=== PATIENT | female | born 1985 | race Caucasian/White ===

== ENCOUNTER → 2018-04-03 09:05 | Outpatient (CLI) | payer OTHER, SELFPAY ==
[2018-04-03 09:59] LABS: Absolute Lymphocyte Count 2.19 X10^3/ul (0.83-4.51); Absolute Neutrophil Count 5.8 X10^3/uL (2.0-7.7); Basophil# 0.05 X10^3/uL; Basophil% 0.6 % (0-1); Eosinophil# 0.25 X10^3/uL; Eosinophils% 2.9 % (0-5); Hemoglobin 14.8 g/dl (12.0-15.0); Lymphocyte # 2.19 X10^3/ul (4.0); Mean Corp Hgb Conc 34.4 g/gl (32-36); Mean Corpuscular Hgb 31.6 pg (27.0-32.0); Mean Corpuscular Volume 91.7 fL (81-99); Mean Platelet Vol. 9.6 fl (6.2-12.0); Monocyte# 0.51 X10^3/uL; Monocyte% 5.8 % (0-10); Neutrophil # 5.76 X10^3/uL (2.7-7.7); Neutrophil % 65.6 % (47-70); Platelet Count 392 K/mm3 (150-450); RBC Distribution Width CV 12.4 % (11.6-14.6); RBC Distribution Width SD 40.5 fl (35.1-43.9); Red Blood Count 4.69 M/mm3 (4.2-5.4); White Blood Count 8.8 K/mm3 (4.4-11.0)
[2018-04-03 10:00] LABS: POSITIVE COUNT NO; POSITIVE DIFFERENTIAL NO; POSITIVE MORPHOLOGY NO
[2018-04-03 10:30] LABS: ALB/GLOB Ratio 0.9 RATIO (0.9-2.4); AST(SGOT) 16 U/L (15-37); Alanine Aminotransfer ALT/SGPT 35 U/L (13-56); Albumin, Serum 3.6 g/dL (3.2-5.0); Alkaline Phosphatase 77 U/L (45-117); Anion Gap 10 (5-15); BUN 15 mg/dL (7-18); BUN/Creat Ratio 18.5 RATIO (10-20); Calcium,Total 8.5 mg/dL (8.5-10.1); Chloride 104 mmol/L (98-107); Cholesterol 158 mg/dL (200); Creatinine, Serum 0.81 mg/dL (0.55-1.02); EST Glomerular Filtration Rate 86 mL/min (>60); Est Glom Filt Rate - Afr Amer 104 mL/min (>60); Globulin 3.8 g/dL (2.2-4.2); Glucose 92 mg/dL (74-106); High Density Lipoprotein 38 mg/dL; Potassium 3.8 mmol/L (3.5-5.1); Protein, Total 7.4 g/dL (6.4-8.2); Sodium Level 140 mmol/L (136-145); Triglycerides 79 mg/dL; Very Low Density Lipoprotein 16 mg/dL (5-40)
== END ==
PROVIDERS: Family Provider Internal Medicine; PCP Internal Medicine; Referring Provider Internal Medicine; Visit Provider Internal Medicine
DX: I10 Essential (primary) hypertension (principal); J45.909 Unspecified asthma, uncomplicated
CPT/HCPCS: 36415; 80053; 80061; 85025

== ENCOUNTER → 2018-04-09 12:45 | Outpatient (CLI) | payer OTHER, SELFPAY ==
--- NOTE | 2018-04-09 12:49 | EKG12_ITS ---
Test Reason : HYPERTENSION Blood Pressure : / mmHG Vent. Rate : 074 BPM Atrial Rate : 074 BPM P-R Int : 168 ms QRS Dur : 082 ms QT Int : 386 ms P-R-T Axes : 048 020 030 degrees QTc Int : 428 ms Normal sinus rhythm Cannot rule out Anterior infarct , age undetermined Abnormal ECG Confirmed by PARKER LOVE, DIA ([id number]), managing editor MARIELOS BRUNSON ([id number] on 04/12/2018 12:49:51 PM Referred By: Aline Chávez Confirmed By:DIA CANALES MD
== END ==
PROVIDERS: Family Provider Internal Medicine; PCP Internal Medicine; Referring Provider Internal Medicine; Visit Provider Internal Medicine
DX: I10 Essential (primary) hypertension (principal)
CPT/HCPCS: 93005

== ENCOUNTER → 2018-10-20 17:12 | Outpatient (CLI) | payer OTHER, SELFPAY ==
[2018-10-20 16:52] VITALS: BMI 37.0
[2018-10-20 18:10] LABS: ALB/GLOB Ratio 1.1 RATIO (0.9-2.4); AST(SGOT) 18 U/L (15-37); Alanine Aminotransfer ALT/SGPT 27 U/L (13-56); Albumin, Serum 4.1 g/dL (3.2-5.0); Alkaline Phosphatase 76 U/L (45-117); Anion Gap 6 (5-15); BUN 13 mg/dL (7-18); BUN/Creat Ratio 17.7 RATIO (10-20); Calcium,Total 8.8 mg/dL (8.5-10.1); Chloride 107 mmol/L (98-107); Creatinine, Serum 0.74 mg/dL (0.55-1.02); EST Glomerular Filtration Rate 96 mL/min (>60); Est Glom Filt Rate - Afr Amer 116 mL/min (>60); Globulin 3.7 g/dL (2.2-4.2); Glucose 88 mg/dL (74-106); Potassium 3.7 mmol/L (3.5-5.1); Protein, Total 7.8 g/dL (6.4-8.2); Sodium Level 136 mmol/L (136-145)
== END ==
PROVIDERS: Family Provider Internal Medicine; PCP Internal Medicine; Referring Provider Internal Medicine; Visit Provider Internal Medicine
DX: I10 Essential (primary) hypertension (principal)
CPT/HCPCS: 36415; 80053

== ENCOUNTER → 2019-03-22 15:58 | Outpatient (CLI) | payer OTHER, SELFPAY ==
[2019-01-31 09:34] VITALS: BMI 37.0
--- NOTE | 2019-03-22 16:00 | RAD_ITS ---
STUDY: X-RAY CHEST REASON FOR EXAM: Female, 34 years old. Enlarged lymph nodes and history of asthma TECHNIQUE: Frontal and lateral views of the chest. COMPARISON: None. FINDINGS: The lungs are clear and expanded. There is no demonstrated pleural abnormality. Normal size heart. Normal mediastinum and song. Normal visualized pulmonary arteries. Normal visualized aortic arch and descending thoracic aorta. Normal visualized thoracic spine. Normal visualized ribs, clavicles, and shoulders. There is no demonstrated abnormality of the visualized soft tissue structures of the upper abdomen. RAD/Chest PA and Lateral IMPRESSION: Normal x-ray examination of the chest. Electronically Signed: Abel Crystal MD at 20:58 EDT , Service support ,
== END ==
PROVIDERS: Family Provider Internal Medicine; PCP Internal Medicine; Referring Provider Dermatology Pediatric Dermatology; Visit Provider Dermatology Pediatric Dermatology
DX: L50.1 Idiopathic urticaria (principal); R59.0 Localized enlarged lymph nodes; L29.8 Other pruritus
CPT/HCPCS: 71046

== ENCOUNTER → 2019-05-18 10:15 | Outpatient (CLI) | payer OTHER, SELFPAY ==
[2019-05-04 16:56] VITALS: BMI 37.0
--- NOTE | 2019-05-18 10:19 | EKG12_ITS ---
Test Reason : TACHYCARDIA Blood Pressure : / mmHG Vent. Rate : 089 BPM Atrial Rate : 089 BPM P-R Int : 164 ms QRS Dur : 078 ms QT Int : 354 ms P-R-T Axes : 046 012 026 degrees QTc Int : 430 ms Normal sinus rhythm Cannot rule out Anterior infarct , age undetermined Abnormal ECG Confirmed by CHIVO DEL TORO ([id number]), makeup editor DARRELL TRAN ([id number]) on 05/20/2019 11:30:23 AM Referred By: Aline Chávez Confirmed By:CHIVO DEL TORO
== END ==
PROVIDERS: Family Provider Internal Medicine; PCP Internal Medicine; Referring Provider Internal Medicine; Visit Provider Internal Medicine
DX: I10 Essential (primary) hypertension (principal); R00.0 Tachycardia, unspecified
CPT/HCPCS: 93005

== ENCOUNTER → 2019-11-08 | Outpatient (CLI) | payer OTHER, SELFPAY ==
[2019-11-08 15:24] VITALS: BMI 37.3
[2019-11-08 16:58] LABS: Bacteria 0 SEEN /hpf (None Seen); Mucous, Urine 0 SEEN /hpf (<or=2+)
[2019-11-08 17:01] LABS: Color, Urine Yellow (Yellow); Glucose, Dipstick Normal (Normal); Ketone-Dipstick Negative (Negative); Leukocyte Esterase-Dipstick 100 /ul (Negative); Nitrite-Dipstick Negative (Negative); Occult Blood-Urine 50 /ul (Negative); Protein-Dipstick 15 mg/dl (Negative); Urine Bilirubin Dipstick Negative (Negative); Urine Clarity Sl. Cloudy (Clear); Urine Urobilinogen Normal (Normal)
[2019-11-08 17:07] LABS: Red Blood Cells-Urine 0-5 SEEN /hpf (0-5); Squamous Epithelial Cells - UA 0-5 SEEN /hpf (5-10); White Blood Cells 5-10 SEEN /hpf (0-5)
== END | disposition home or self-care (01) ==
LOC: LABSPEC 16:38
PROVIDERS: PCP Internal Medicine; Referring Provider Internal Medicine; Visit Provider Internal Medicine
DX: R10.9 Unspecified abdominal pain (principal)
CPT/HCPCS: 81001

== ENCOUNTER 2019-11-09 14:29 | Emergency (ER) | payer OTHER, SELFPAY ==
[2019-11-08 15:24] VITALS: BMI 37.3
[2019-11-09 14:30] VITALS: BP 147/102; PULSE 120; PULSE 127; RESP 18; TEMP 36.4; O2SAT 96; O2SAT 97; BMI 37.6
--- NOTE | 2019-11-09 14:57 | CT_ITS ---
STUDY: CT ABDOMEN AND PELVIS WITHOUT CONTRAST REASON FOR EXAM: Female, 34 years old. Left lower quadrant pain RADIATION DOSAGE (If Supplied By Facility): CTDIvol = ( 17.54 ) mGy, DLP = ( 867.49 ) mGycm TECHNIQUE: Transaxial images were obtained from the dome of the diaphragm to the symphysis pubis without oral contrast, and without intravenous contrast. Sagittal and coronal images were reconstructed. Individualized dose optimization techniques were used for this CT. COMPARISON: None. FINDINGS: The visualized lung bases are unremarkable. The visualized portions of the heart are within normal limits. Normal liver. Normal gallbladder and extrahepatic biliary system. Normal spleen. Normal pancreas. Normal bilateral adrenal glands. Normal right kidney. There is left-sided hydronephrosis and hydroureter with perinephric and periureteral inflammatory stranding. Findings are due to a 6.2 mm stone in the distal left ureter seen on coronal recon image 78 and axial image 148. Normal visualized stomach. Normal small intestine. Normal colon. The appendix is visualized and appears normal. Appendix best seen on axial image 130 Normal abdominal aorta. Normal inferior vena cava. Normal retroperitoneum. Normal urinary bladder. Uterus contains an IUD. No suspicious cystic mass or free fluid Normal abdominal wall. Normal osseous structures. CT/Abdomen/Pelvis without Cont IMPRESSION: There is a 6.2 mm stone in the distal left ureter causing hydronephrosis, hydroureter, perinephric and periureteral inflammatory stranding Normal appendix visualized No free intraperitoneal fluid, air, or suspicious adenopathy IUD noted within the uterus Electronically Signed: Artem Alarcon MD at 16:24 EDT , Service support ,
--- NOTE | 2019-11-09 14:58 | ED.DCSUM_ITS ---
- ER Visit Summary Date of Service: 11/09/19 Chief Complaint: Left flank pain History of Present Illness: The patient is a 34 F who presents with left flank pain for the past week. Patient states she has seen her doctor for this. Patient states her doctor referred to the emergency department for further e valuation. Patient describes her pain as sharp and cramping. Patient states the pain is intermittent and last for several hours. Patient states the pain is localized to the left flank. Patient states the pain improves somewhat with heat and with walking. Patient denies any fevers or chills. Patient denies any dysuria or hematuria. Patient admits to some nausea but denies any vomiting. Physical Examination: Vital signs are stable except for tachycardia of 127. Patient is afebrile. Patient is in no acute distress. Neck is supple. Trachea is midline. There is no JVD. Heart was regular rate and rhythm. Lungs are clear and equal bilaterally. Abdomen is soft. Bowel sounds are normal. There is mild left sided abdominal tenderness. There is left CVA tenderness. There is no rebound or guarding noted. Cranial nerves II through XII are intact. There are no focal motor or sensory deficits noted. Extremities are intact. There is no calf tenderness or edema. Test Results: CBC shows a mild leukocytosis of 16.7. Comprehensive metabolic profile showed a slightly elevated creatinine of 1.21 and a BUN of 21. Urinalysis does not show any evidence of urinary tract infection. Serum hCG was negative. CT scan of the abdomen and pelvis was obtained. There is a 6.2 mm stone in the left distal ureter with hydronephrosis and hydroureter. This was interpreted by the radiologist and reviewed by myself. Emergency Department Course and Treatment: Patient was given IV fluids, Toradol, and Zofran here. Patient was resting comfortably on reevaluation. Patient states her pain is resolved. Patient was given a prescription for Percocet. Patient was instructed to drink plenty of fluids. Patient was instructed to follow-up with her primary care physician in 5 to 7 days. Patient was also given referral to Dr. Dave for follow-up with urology. Patient understood and was agreeable with the plan. All questions were answered. Disposition: Discharge home Impression: 1. Left distal ureteral calculus This note was generated with [employer] software. It may contain incorrect words, spelling, and punctuation that were not noted in review of the chart prior to signing ED Disposition - Plan for ED Patient: Disposition: Home or Assisted Living Instructions: ED Renal Stone w Colic Prescriptions: Oxycodone HCl/Acetaminophen [Percocet 5/325] 1 tab PO Q6H PRN PRN 3 Days #12 tab PRN Reason: Pain Prescription Printed Referrals: Aline Chávez MD [Primary Care Provider] - 3-5 Days Rachel Dave MD [STAFF PHYSICIAN] - 1-2 Days if not improving
[2019-11-09 15:09] LABS: Mucous, Urine 0 SEEN /hpf (<or=2+)
[2019-11-09] MEDS: Ketorolac 30 MG/ML Syringe IV (15:10)
[2019-11-09] MEDS: Ondansetron 4 MG/2 ML Vial IV (15:10)
[2019-11-09] MEDS: 0.9% Normal Saline 1,000 ML 250 ML IV (15:11)
[2019-11-09 15:13] LABS: Absolute Lymphocyte Count 1.75 X10^3/uL (0.83-4.51); Absolute Neutrophil Count 13.6 X10^3/uL (2.0-7.7); Basophil# 0.05 X10^3/uL; Basophil% 0.3 % (0-1); Eosinophil# 0.13 X10^3/uL; Eosinophils% 0.8 % (0-5); Hematocrit 43.2 % (37-47); Hemoglobin 14.5 g/dL (12.0-15.0); Lymphocyte # 1.75 X10^3/ul (4.0); Lymphocyte % 10.5 % (19-41); Mean Corp Hgb Conc 33.6 g/dL (32-36); Mean Corpuscular Hgb 30.7 pg (27.0-32.0); Mean Corpuscular Volume 91.3 fL (81-99); Mean Platelet Vol. 9.2 fl (6.2-12.0); Monocyte# 1.08 X10^3/uL; Monocyte% 6.5 % (0-10); NRBC Flagged by Analyzer 0 % (0-5); Neutrophil # 13.59 X10^3/uL (2.7-7.7); Neutrophil % 81.5 % (47-70); Platelet Count 466 K/mm3 (150-450); RBC Distribution Width CV 12.1 % (11.6-14.6); RBC Distribution Width SD 41.1 fl (35.1-43.9); Red Blood Count 4.73 M/mm3 (4.2-5.4); White Blood Count 16.7 K/mm3 (4.4-11.0)
[2019-11-09 15:19] LABS: Color, Urine Yellow (Yellow); Glucose, Dipstick Normal (Normal); Ketone-Dipstick 50 mg/dl (Negative); Leukocyte Esterase-Dipstick 100 /ul (Negative); Nitrite-Dipstick Negative (Negative); Occult Blood-Urine 50 /ul (Negative); Protein-Dipstick 15 mg/dl (Negative); Specific Gravity, Urine 1.025 (1.002-1.030); Urine Bilirubin Dipstick Negative (Negative); Urine Clarity Clear (Clear); Urine Urobilinogen Normal (Normal)
[2019-11-09 15:24] LABS: Anion Gap 7 (5-15); BUN 21 mg/dL (7-18); BUN/Creat Ratio 17.4 RATIO (10-20); Calcium,Total 9.6 mg/dL (8.5-10.1); Chloride 108 mmol/L (98-107); Creatinine, Serum 1.21 mg/dL (0.55-1.02); EST Glomerular Filtration Rate 54 mL/min (>60); Est Glom Filt Rate - Afr Amer 65 mL/min (>60); Estimated Creatinine Clearance 58.39 ml/min; Glucose 100 mg/dL (74-106); Potassium 3.8 mmol/L (3.5-5.1); Sodium Level 141 mmol/L (136-145)
[2019-11-09 15:29] LABS: Bacteria 1+ /hpf (None Seen); Red Blood Cells-Urine 0-5 SEEN /hpf (0-5); Squamous Epithelial Cells - UA 5-10 SEEN /hpf (5-10); White Blood Cells 0-5 SEEN /hpf (0-5)
[2019-11-09 15:36] LABS: Internal QC Validated? YES +Cl - CLEAR BKGD; Pregnancy, Serum, hCG Quali. NEGATIVE Negative
[2019-11-09 17:57] VITALS: RESP 16
== END 2019-11-09 17:58 | disposition home or self-care (01) ==
PROVIDERS: Emergency Provider Emergency Medicine; PCP Internal Medicine
DX: N13.2 Hydronephrosis with renal and ureteral calculous obstruction (principal); I10 Essential (primary) hypertension; J45.909 Unspecified asthma, uncomplicated; Z79.899 Other long term (current) drug therapy
CPT/HCPCS: 74176; 80048; 81001; 84703; 85025; 96361; 96374; 96375; 99283; J7030; A4216; J2405

== ENCOUNTER → 2019-11-24 14:47 | Outpatient (CLI) | payer OTHER, SELFPAY ==
[2019-11-09 14:30] VITALS: BMI 37.6
[2019-11-24 17:10] LABS: Anion Gap 5 (5-15); BUN 23 mg/dL (7-18); BUN/Creat Ratio 21.5 RATIO (10-20); Calcium,Total 9.1 mg/dL (8.5-10.1); Chloride 106 mmol/L (98-107); Creatinine, Serum 1.07 mg/dL (0.55-1.02); EST Glomerular Filtration Rate 62 mL/min (>60); Est Glom Filt Rate - Afr Amer 75 mL/min (>60); Glucose 87 mg/dL (74-106); Potassium 3.5 mmol/L (3.5-5.1); Sodium Level 138 mmol/L (136-145)
== END ==
PROVIDERS: PCP Internal Medicine; Referring Provider Internal Medicine; Visit Provider Internal Medicine
DX: R10.9 Unspecified abdominal pain (principal); N28.9 Disorder of kidney and ureter, unspecified
CPT/HCPCS: 36415; 80048

== ENCOUNTER → 2019-12-20 14:55 | Outpatient (CLI) | payer OTHER, SELFPAY ==
--- NOTE | 2019-12-20 15:00 | US_ITS ---
STUDY: RENAL ULTRASOUND - COMPLETE REASON FOR EXAM: Female, 34 years old. HYDRONEPHROSIS WI CALCULUS TECHNIQUE: Ultrasound evaluation of the kidneys was performed with real-time and static freire-scale imaging. COMPARISON: None. FINDINGS: The study is technically limited secondary to patient obesity and excessive bowel gas. RIGHT KIDNEY: Normal location of the right kidney, which is normal in size. The right kidney measures 8.8 x 4.5 x 4.2 cm. There is a normal cortex of the right kidney. The renal cortex measures 1.5 cm. There is no right renal mass or cyst. There are no right renal calculi. There is no right hydronephrosis. DISTAL RIGHT URETER: There is non-visualization of the distal right ureter. There is no demonstrated right ureterovesical junction calculus. There is a visualized right ureteral jet. LEFT KIDNEY: Normal location of the left kidney, which is normal in size. The left kidney measures 9.4 x 4.9 x 5.4 cm. There is a normal cortex of the left kidney. The renal cortex measures 2.0 cm. There is no left renal mass or cyst. There are no left renal calculi. There is no left hydronephrosis. DISTAL LEFT URETER: There is non-visualization of the distal left ureter. There is no demonstrated left ureterovesical junction calculus. There is a visualized left ureteral jet. BLADDER: The distended urinary bladder has a volume of 54 ml. There is a normal wall thickness of the distended urinary bladder. Lateral wall thickness is 3 mm. There is no demonstrated mass within the urinary bladder. There are no demonstrated bladder calculi. US/Kidney and Bladder IMPRESSION: Normal ultrasound of the kidneys and urinary bladder. Electronically Signed: Giancarlo Abernathy MD at 16:07 EDT , Service support ,
== END ==
PROVIDERS: PCP Internal Medicine; Referring Provider Urology; Visit Provider Urology
DX: N13.2 Hydronephrosis with renal and ureteral calculous obstruction (principal)
CPT/HCPCS: 76770

== ENCOUNTER → 2020-05-04 12:20 | Outpatient (CLI) | payer OTHER, SELFPAY ==
[2020-05-02 17:28] VITALS: BMI 38.6
--- NOTE | 2020-05-04 12:21 | RAD_ITS ---
STUDY: X-RAY - LEFT HAND REASON FOR EXAM: Female, 35 years old. left wrist pain and localized swelling -- proximal 1st mc pain, no injury TECHNIQUE: 3 view(s) of the hand. COMPARISON: None. FINDINGS: Normal radiocarpal articulation. Normal distal radioulnar joint. Normal visualized carpal bones. Normal carpal articulations Normal carpometacarpal articulation of the thumb. Normal second through fifth carpometacarpal joints. Normal metacarpi. Normal metacarpophalangeal joint of the thumb. Normal interphalangeal joint of the thumb. Normal proximal and distal phalanges of the thumb. Normal metacarpophalangeal joints of the second through fifth fingers. Normal proximal and distal interphalangeal joints of the second through fifth fingers. Normal phalanges of the second through fifth fingers. The soft tissue structures are unremarkable. RAD/Hand Min 3 Views IMPRESSION: Normal x-ray examination of the hand. Electronically Signed: Joshua Jacobo MD (Brooks) at 14:11 EST , Service support ,
== END ==
PROVIDERS: PCP Internal Medicine; Referring Provider Internal Medicine; Visit Provider Internal Medicine
DX: M25.532 Pain in left wrist (principal)
CPT/HCPCS: 73130

== ENCOUNTER → 2020-09-18 10:07 | Outpatient (CLI) | payer OTHER, SELFPAY ==
--- NOTE | 2020-09-18 10:08 | MRI_ITS ---
STUDY: MRI LEFT WRIST WITHOUT CONTRAST REASON FOR EXAM: Left wrist pain at the palmar aspect of the fourth and fifth metacarpal bases. TECHNIQUE: Standardized fat and water weighted pulse sequences were obtained in all 3 orthogonal planes. COMPARISON: Radiographs 05/04/2020. FINDINGS: Normal visualized distal radius and ulna. Normal distal radioulnar articulation (DRUJ). Normal triangular fibrocartilaginous complex (TFCC). There is cystic change of the radial aspect of the lunate (inversion recovery coronal images 12-14) with preservation of normal T1 bone marrow signal in the remainder of the lunate. There is a small subchondral cyst in the distal pole of the scaphoid (inversion recovery coronal image 10). Otherwise, unremarkable carpal bones. Normal radiocarpal, intercarpal and midcarpal articulations. Normal pisotriquetral articulation. Normal visualized interosseous scapholunate ligament. Normal extensor tendons. Normal flexor tendons. Normal carpal tunnel with a normal median nerve. Normal Guyon''s canal and visualized ulnar nerve. Normal carpometacarpal articulation of the thumb. Normal second through fifth carpometacarpal articulations. Normal visualized metacarpal bones. There is no demonstrated soft tissue abnormality. There is specifically is no demonstrated soft tissue mass or cyst corresponding to the skin marker (T2 sagittal 21-23; inversion recovery axial images 10-12). MRI/Upper Ext Joint Only(Routine) IMPRESSION: Cystic change of the radial aspect of the lunate. Small subchondral cyst in the distal pole of the scaphoid. No demonstrated soft tissue mass or cyst corresponding to the skin marker. Electronically Signed: Taye Sanchez MD at 8:41 EDT Tel , Service support ,
== END ==
PROVIDERS: PCP Internal Medicine; Referring Provider Physician Assistant; Visit Provider Physician Assistant
DX: M25.832 Other specified joint disorders, left wrist (principal)
CPT/HCPCS: 73221

== ENCOUNTER → 2020-10-05 09:10 | Outpatient (CLI) | payer OTHER, SELFPAY ==
--- NOTE | 2020-10-05 09:20 | EKG12_ITS ---
Test Reason : TACHY Blood Pressure : / mmHG Vent. Rate : 093 BPM Atrial Rate : 093 BPM P-R Int : 168 ms QRS Dur : 082 ms QT Int : 350 ms P-R-T Axes : 041 011 022 degrees QTc Int : 435 ms Poor data quality, interpretation may be adversely affected Normal sinus rhythm Poor R- progression Confirmed by PARKER LOVE, DIA ([id number]), publishing editor DARRELL TRAN ([id number]) on 10/10/2020 10:32:50 AM Referred By: Aline Chávez Confirmed By:DIA CANALES MD
[2020-10-05 10:10] LABS: Absolute Lymphocyte Count 1.91 X10^3/uL (0.83-4.51); Absolute Neutrophil Count 6.4 X10^3/uL (2.0-7.7); Basophil# 0.09 X10^3/uL; Eosinophil# 0.27 X10^3/uL; Eosinophils% 2.9 % (0-5); Hematocrit 44.4 % (37-47); Hemoglobin 14.3 g/dL (12.0-15.0); Lymphocyte # 1.91 X10^3/ul (0.83-4.51); Lymphocyte % 20.6 % (19-41); Mean Corp Hgb Conc 32.2 g/dL (32-36); Mean Corpuscular Hgb 29.7 pg (27.0-32.0); Mean Corpuscular Volume 92.3 fL (81-99); Mean Platelet Vol. 9.1 fl (6.2-12.0); Monocyte# 0.53 X10^3/uL; Monocyte% 5.7 % (0-10); NRBC Flagged by Analyzer 0 % (0-5); Neutrophil # 6.43 X10^3/uL (2.7-7.7); Neutrophil % 69.5 % (47-70); Platelet Count 433 K/mm3 (150-450); RBC Distribution Width CV 12.7 % (11.6-14.6); RBC Distribution Width SD 43.3 fl (35.1-43.9); Red Blood Count 4.81 M/mm3 (4.2-5.4); White Blood Count 9.3 K/mm3 (4.4-11.0)
[2020-10-05 10:34] LABS: ALB/GLOB Ratio 0.9 RATIO (0.9-2.4); AST(SGOT) 19 U/L (15-37); Alanine Aminotransfer ALT/SGPT 41 U/L (13-56); Albumin, Serum 3.6 g/dL (3.2-5.0); Alkaline Phosphatase 88 U/L (45-117); Anion Gap 4 (5-15); BUN 10 mg/dL (7-18); BUN/Creat Ratio 12.2 RATIO (10-20); Calcium,Total 8.9 mg/dL (8.5-10.1); Chloride 104 mmol/L (98-107); Cholesterol 200 mg/dL (200); Creatinine, Serum 0.82 mg/dL (0.55-1.02); EST Glomerular Filtration Rate 84 mL/min (>60); Est Glom Filt Rate - Afr Amer 101 mL/min (>60); Globulin 3.8 g/dL (2.2-4.2); Glucose 95 mg/dL (74-106); High Density Lipoprotein 40 mg/dL; Potassium 3.9 mmol/L (3.5-5.1); Protein, Total 7.4 g/dL (6.4-8.2); Sodium Level 137 mmol/L (136-145); Triglycerides 93 mg/dL; Very Low Density Lipoprotein 19 mg/dL (5-40)
== END ==
PROVIDERS: PCP Internal Medicine; Referring Provider Internal Medicine; Visit Provider Internal Medicine
DX: R00.0 Tachycardia, unspecified (principal); I10 Essential (primary) hypertension; E66.9 Obesity, unspecified
CPT/HCPCS: 36415; 80053; 80061; 85025; 93005

== ENCOUNTER → 2020-12-19 15:38 | Outpatient (CLI) | payer OTHER, SELFPAY ==
[2020-12-17 07:56] VITALS: BMI 39.6
--- NOTE | 2020-12-19 15:41 | RAD_ITS ---
STUDY: X-RAY - ABDOMEN/PELVIS REASON FOR EXAM: Female, 35 years old. KUB-STONE TECHNIQUE: 1 view COMPARISON: Prior abdomen and pelvic CT exam of 11/09/2019 and renal ultrasound of 12/20/2019. FINDINGS: Normal visualized lung bases. There is an unremarkable bowel gas pattern. There is no demonstrated free abdominal air. The visualized liver, spleen and kidneys are grossly normal in size and morphology. Negative for renal, ureteral or bladder stones. IUD remains in the uterus. Normal visualized osseous structures. RAD/Abdomen Single View IMPRESSION: Normal x-ray examination of the abdomen and pelvis. Negative for renal, ureteral or bladder stones. The prior distal left ureteral stone is absent. Electronically Signed: Sandy Mijares MD at 16:08 EDT , Service support ,
== END ==
PROVIDERS: PCP Internal Medicine; Referring Provider Urology; Visit Provider Urology
DX: N20.1 Calculus of ureter (principal)
CPT/HCPCS: 74018

== ENCOUNTER → 2021-01-03 | Outpatient (CLI) | payer OTHER, SELFPAY ==
[2021-01-03 14:15] VITALS: BMI 39.1
[2021-01-08 14:10] LABS: HPV APTIMA, High Risk Negative (Negative)
== END | disposition home or self-care (01) ==
LOC: LABSPEC 15:14
PROVIDERS: PCP Internal Medicine; Referring Provider Nurse Practitioner Women's Health; Visit Provider Nurse Practitioner Women's Health
DX: Z12.4 Encounter for screening for malignant neoplasm of cervix (principal)
CPT/HCPCS: 87624; 88175; G0145

== ENCOUNTER → 2021-03-02 08:17 | Outpatient (CLI) | payer OTHER, SELFPAY ==
[2021-03-02 09:24] LABS: Cholesterol 196 mg/dL (200); High Density Lipoprotein 42 mg/dL; Triglycerides 79 mg/dL; Very Low Density Lipoprotein 16 mg/dL (5-40)
== END ==
PROVIDERS: PCP Internal Medicine; Referring Provider Internal Medicine; Visit Provider Internal Medicine
DX: I10 Essential (primary) hypertension (principal); E78.5 Hyperlipidemia, unspecified
CPT/HCPCS: 36415; 80061

== ENCOUNTER 2021-09-18 15:06 | Outpatient (CLI) | payer OTHER, SELFPAY ==
[2021-09-18 17:05] LABS: Absolute Lymphocyte Count 1.88 X10^3/uL (0.83-4.51); Absolute Neutrophil Count 6.8 X10^3/uL (2.0-7.7); Basophil# 0.08 X10^3/uL; Basophil% 0.8 % (0-1); Eosinophil# 0.33 X10^3/uL; Eosinophils% 3.4 % (0-5); Hematocrit 41.4 % (37-47); Lymphocyte # 1.88 X10^3/ul (0.83-4.51); Lymphocyte % 19.2 % (19-41); Mean Corp Hgb Conc 33.8 g/dL (32-36); Mean Corpuscular Volume 91.6 fL (81-99); Mean Platelet Vol. 9.2 fl (6.2-12.0); Monocyte% 7.2 % (0-10); NRBC Flagged by Analyzer 0 % (0-5); Neutrophil # 6.76 X10^3/uL (2.7-7.7); Neutrophil % 69.1 % (47-70); Platelet Count 462 K/mm3 (150-450); RBC Distribution Width CV 12.9 % (11.6-14.6); RBC Distribution Width SD 42.6 fl (35.1-43.9); Red Blood Count 4.52 M/mm3 (4.2-5.4); White Blood Count 9.8 K/mm3 (4.4-11.0)
[2021-09-18 17:19] LABS: Anion Gap 7 (5-15); BUN 16 mg/dL (7-18); Calcium,Total 8.8 mg/dL (8.5-10.1); Chloride 107 mmol/L (98-107); Creatinine, Serum 0.89 mg/dL (0.55-1.02); EST Glomerular Filtration Rate 76 mL/min (>60); Est Glom Filt Rate - Afr Amer 92 mL/min (>60); Glucose 96 mg/dL (74-106); Potassium 3.7 mmol/L (3.5-5.1); Sodium Level 141 mmol/L (136-145)
== END 2021-09-18 23:59 | disposition home or self-care (01) ==
LOC: BIMLAB 15:07
PROVIDERS: PCP Internal Medicine; Referring Provider Internal Medicine; Visit Provider Internal Medicine
DX: I10 Essential (primary) hypertension (principal)
CPT/HCPCS: 36415; 80048; 85025

== ENCOUNTER → 2022-01-30 | Outpatient (CLI) | payer OTHER, SELFPAY ==
[2022-01-30 16:31] LABS: Absolute Neutrophil Count 7.5 X10^3/uL (2.0-7.7); Basophil# 0.07 X10^3/uL; Basophil% 0.7 % (0-1); Eosinophil# 0.28 X10^3/uL; Eosinophils% 2.6 % (0-5); Hemoglobin 14.3 g/dL (12.0-15.0); Lymphocyte % 19.7 % (19-41); Mean Corp Hgb Conc 33.3 g/dL (32-36); Mean Corpuscular Hgb 30.5 pg (27.0-32.0); Mean Corpuscular Volume 91.7 fL (81-99); Mean Platelet Vol. 9.2 fl (6.2-12.0); Monocyte# 0.68 X10^3/uL; Monocyte% 6.4 % (0-10); NRBC Flagged by Analyzer 0 % (0-5); Neutrophil # 7.51 X10^3/uL (2.7-7.7); Neutrophil % 70.3 % (47-70); Platelet Count 465 K/mm3 (150-450); RBC Distribution Width SD 43.5 fl (35.1-43.9); Red Blood Count 4.69 M/mm3 (4.2-5.4); White Blood Count 10.7 K/mm3 (4.4-11.0)
[2022-01-30 16:42] LABS: ALB/GLOB Ratio 0.9 RATIO (0.9-2.4); AST(SGOT) 18 U/L (15-37); Alanine Aminotransfer ALT/SGPT 34 U/L (13-56); Albumin, Serum 3.6 g/dL (3.2-5.0); Alkaline Phosphatase 80 U/L (45-117); Anion Gap 4 (5-15); BUN 17 mg/dL (7-18); BUN/Creat Ratio 21.7 RATIO (10-20); Calcium,Total 9.3 mg/dL (8.5-10.1); Chloride 108 mmol/L (98-107); Cholesterol 186 mg/dL (200); Creatinine, Serum 0.78 mg/dL (0.55-1.02); EST Glomerular Filtration Rate 88 mL/min (>60); Est Glom Filt Rate - Afr Amer 106 mL/min (>60); Globulin 3.9 g/dL (2.2-4.2); Glucose 102 mg/dL (74-106); High Density Lipoprotein 36 mg/dL; Potassium 3.9 mmol/L (3.5-5.1); Protein, Total 7.5 g/dL (6.4-8.2); Sodium Level 138 mmol/L (136-145); Triglycerides 107 mg/dL; Very Low Density Lipoprotein 21 mg/dL (5-40)
== END | disposition home or self-care (01) ==
LOC: BIMLAB 15:17
PROVIDERS: PCP Internal Medicine; Referring Provider Internal Medicine; Visit Provider Internal Medicine
DX: I10 Essential (primary) hypertension (principal); E78.5 Hyperlipidemia, unspecified
CPT/HCPCS: 36415; 80053; 80061; 85025

== ENCOUNTER 2022-11-25 11:57 | Day surgery (SDC) | payer OTHER, SELFPAY ==
[2022-11-25] VITALS (7 sets, daily range): BP systolic 109–145; BP diastolic 76–90; PULSE 95–116; RESP 16–18; TEMP 36.6–37.3; O2SAT 94–99; BMI 38.9
[2022-11-25 12:35] LABS: Internal QC Validated? YES +Cl - CLEAR BKGD; Pregnancy, Urine Negative Negative
[2022-11-25] MEDS: Lactated Ringers 1,000 ML 15 ML IV (12:38)
--- NOTE | 2022-11-25 13:00 | PCM.HP.BLA ---
History and Physical Date of Admission: 11/25/22 SIA ZHENG, is a 37 F who presents to the office today for hoarse voice that began in 11/2021. She has been on PPI since 01/2022. Initially on omeprazole. Now on pantoprazole 40 mg BID and famotidine 20 mg BID. Medical treatment hasn't helped the hoarse voice. She has never had heartburn or acid reflux. Some intermittent difficulty with swallowing bread that started when she was 5 yrs ago. Has been evaluated by ENT who thinks the vocal cord issues are due to silent acid reflux. Dr Luciano did repeat laryngoscopy earlier this month, now has nodules on vocal cords. Didn't have nodules in 02/2022. She is a adult literacy teacher. No nausea, vomiting, abd pain. Exam Const General: cooperative and comfortable Nutritional Appearance: obese Orientation: alert, awake and oriented x3 Other: voice is hoarse Quality Reporting Tobacco Screening ([facility] 138) Smoking Status: Never smoker Assessment and Plan Assessment and Plan (1) Hoarseness: ?Status:?Chronic ?Plan: Will schedule her for EGD with Branch pH, hold famotidine and pantoprazole for 1 wk prior. Eval for reflux esophagitis, stone's, stricture, bile reflux. f/u in office 2 wks later to discuss results. I have examined the patient and the H&P has been reviewed. There are no clinical changes since date of exam.
--- NOTE | 2022-11-25 13:15 | EGD_PTH ---
PATIENT: SIA ZHENG LOC: EN U#:[id number] AGE/SX: 37/F ROOM: RE11/25/[address]: Dr. Mau Kohli DO : 1985 BED: DIS: 11/25/2022 SPEC #: [id number] RECD: 11/25/22 15:53 STATUS: JUAN REPreston #: [id number] EUGENIO: 11/25/22 13:[address]: Mau Kohli DEPT: SURGICAL PATHOLOGY RECD BY: Ami Crane ENTERED: 11/26/22 08:42 SP TYPE: EGD BIOPSY BRUNO DR: Dr. Aline Chávez MD Tissues: A - Esophagus, NOS B - Esophagus, NOS Procedures: Special Stain Group II Surgery Specimen Level IV Alcian Blue/PAS (control) HEADER OPERATION: EGD ? PH probe (MAC) PRE-OP DIAGNOSIS: Hoarseness TISSUE SUBMITTED: A ? Distal esophagus biopsy, B ? Random esophagus biopsy MICROSCOPIC DIAGNOSIS A. Distal esophagus, biopsy: Fragments of gastric mucosa with chronic gastritis. No evidence of goblet cell metaplasia. See comment. B. Esophagus, random biopsy: No pathologic change. AM:jessica 11/27/2022 COMMENT A. Alcian blue/PAS stain with matched control supports the above diagnosis. MICROSCOPIC DESCRIPTION Slides are reviewed. GROSS DESCRIPTION A - Received in fixative is one container labeled with the patient's name and designated distal esophagus biopsy. The specimen consists of two irregular fragments of light de jesus soft tissue that in aggregate measure 0.6 x 0.3 x 0.1 cm. The specimen is totally submitted in one cassette. B - Received in fixative is one container labeled with the patient's name and designated random esophagus biopsy. The specimen consists of two irregular fragments of light de jesus soft tissue that in aggregate measure 0.6 x 0.3 x 0.1 cm. The specimen is totally submitted in one cassette. / SJ:jessica 11/26/2022 TC:3 CPT: 81162 x2, 33320
--- NOTE | 2022-11-25 13:43 | OP.EGD_ITS ---
Patient Name: Leila Mueller Procedure Date: 11/25/2022 1:07 PM Date of : 1985 Age: 37 Procedure: Upper GI endoscopy Indications: Suspected esophageal reflux Providers: Mau Kohli DO Medicines: Monitored Anesthesia Care Patient Profile: This is a 37 year old female. Refer to note in patient chart for documentation of history and physical. Patient has symptoms. Complications: No immediate complications. Procedure: Pre-Anesthesia Assessment: - Prior to the procedure, a History and Physical was performed, and patient medications and allergies were reviewed. The patient is competent. The risks and benefits of the procedure and the sedation options and risks were discussed with the patient. All questions were answered and informed consent was obtained. Patient identification and proposed procedure were verified by the physician. Mental Status Examination: alert and oriented. Respiratory Examination: clear to auscultation. CV Examination: normal. Prophylactic Antibiotics: The patient does not require prophylactic antibiotics. Prior Anticoagulants: The patient has taken no previous anticoagulant or antiplatelet agents. ASA Grade Assessment: II - A patient with mild systemic disease. After reviewing the risks and benefits, the patient was deemed in satisfactory condition to undergo the procedure. The anesthesia plan was to use monitored anesthesia care (MAC). Immediately prior to administration of medications, the patient was re-assessed for adequacy to receive sedatives. The heart rate, respiratory rate, oxygen saturations, blood pressure, adequacy of pulmonary ventilation, and response to care were monitored throughout the procedure. The physical status of the patient was re-assessed after the procedure. After obtaining informed consent, the endoscope was passed under direct vision. Throughout the procedure, the patient's blood pressure, pulse, and oxygen saturations were monitored continuously. The Endoscope was introduced through the mouth, and advanced to the second part of duodenum. The upper GI endoscopy was accomplished without difficulty. The patient tolerated the procedure well. Scope In: 1:22:01 PM Scope Out: 1:29:53 PM Total Procedure Duration Time 0 hours 7 minutes 52 seconds Findings: The examined esophagus was normal. Biopsies were obtained from the proximal and distal esophagus with cold forceps for histology of suspected eosinophilic esophagitis. The Z-line was irregular and was found 36 cm from the incisors. Biopsies were taken with a cold forceps for histology. Verification of patient identification for the specimen was done. Estimated blood loss was minimal. The [employer] capsule with delivery system was introduced through the mouth and advanced into the esophagus, such that the BRITT pH capsule was positioned 36 cm from the incisors, which was 6 cm proximal to the GE junction. Suction was applied to the well of the BRITT pH capsule to suck in the adjacent mucosa of the esophagus using the external vacuum pump set at a minimum vacuum pressure of 550 mmHg for 30 seconds. The BRITT pH capsule was then deployed by depressing the plunger on top of the handle to advance the locking pin into the mucosa, thereby attaching the capsule to the esophagus. The plunger was then rotated a quarter turn clockwise to release the capsule from the delivery system. The delivery system was then withdrawn. Endoscopy was utilized for probe placement and diagnostic evaluation. A small hiatal hernia was present. No other significant abnormalities were identified in a careful examination of the stomach. The first portion of the duodenum was normal. Impression: - Normal esophagus. Biopsied. - Z-line irregular, 36 cm from the incisors. Biopsied. - Small hiatal hernia. - Normal first portion of the duodenum. - The BRITT pH capsule was positioned 36 cm from the incisors, which was 6 cm proximal to the GE junction. Recommendation: - Discharge patient to home. - Resume previous diet. - Continue present medications. - Await pathology results. Procedure Code(s): --- Professional --- 21327, Esophagogastroduodenoscopy, flexible, transoral; with biopsy, single or multiple CPT copyright 2017 [employer] [place] [employer]. All rights reserved. The codes documented in this report are preliminary and upon home appliance technician review may be revised to meet current compliance requirements. Mau Kohli DO 11/25/2022 1:43:18 PM This report has been signed electronically. Number of Addenda: 0 Note Initiated On: 11/25/2022 1:07 PM
--- NOTE | 2022-11-25 13:44 | OP.CCLET_ITS ---
11/25/2022 Aline Chávez MD [address] [place] [address] [place] [address] Re : Upper GI endoscopy procedure for Leila Mueller Dear Dr. Chávez This procedure was performed on Friday, November 25, 2022. My impressions and recommendations are as follows: Impressions : - Normal esophagus. Biopsied. - Z-line irregular, 36 cm from the incisors. Biopsied. - Small hiatal hernia. - Normal first portion of the duodenum. - The BRITT pH capsule was positioned 36 cm from the incisors, which was 6 cm proximal to the GE junction. Recommendations : - Discharge patient to home. - Resume previous diet. - Continue present medications. - Await pathology results. My findings are described in the full procedure note, which is enclosed. If I can be of further assistance, please feel free to contact me at . Sincerely, Mau Friend, 11/25/2022 1:43:18 PM This report has been signed electronically.
== END 2022-11-25 14:33 | disposition home or self-care (01) ==
LOC: EN 12:02 → AC 12:03
PROVIDERS: Anesthesiology; PCP Internal Medicine; Referring Provider Internal Medicine Gastroenterology; Visit Provider Internal Medicine Gastroenterology
PROC: (CPT 43239; principal; 2022-11-25 13:10)
DX: K29.50 Unspecified chronic gastritis without bleeding (principal); K44.9 Diaphragmatic hernia without obstruction or gangrene; R49.0 Dysphonia; K21.9 Gastro-esophageal reflux disease without esophagitis; E66.9 Obesity, unspecified; J45.909 Unspecified asthma, uncomplicated; I10 Essential (primary) hypertension; Z79.899 Other long term (current) drug therapy
CPT/HCPCS: 43239; 81025; 88305; 88313; J7120; J2405

== ENCOUNTER → 2022-12-26 | Outpatient (CLI) | payer OTHER, SELFPAY ==
[2022-12-26 12:06] LABS: Absolute Lymphocyte Count 1.83 X10^3/uL (0.83-4.51); Absolute Neutrophil Count 7.3 X10^3/uL (2.0-7.7); Basophil# 0.07 X10^3/uL; Basophil% 0.7 % (0-1); Eosinophil# 0.32 X10^3/uL; Eosinophils% 3.1 % (0-5); Hematocrit 43.8 % (37-47); Hemoglobin 14.3 g/dL (12.0-15.0); Lymphocyte # 1.83 X10^3/ul (0.83-4.51); Lymphocyte % 17.8 % (19-41); Mean Corp Hgb Conc 32.6 g/dL (32-36); Mean Corpuscular Hgb 30.1 pg (27.0-32.0); Mean Corpuscular Volume 92.2 fL (81-99); Mean Platelet Vol. 9.3 fl (6.2-12.0); Monocyte# 0.69 X10^3/uL; Monocyte% 6.7 % (0-10); NRBC Flagged by Analyzer 0 % (0-5); Neutrophil # 7.31 X10^3/uL (2.7-7.7); Neutrophil % 71.3 % (47-70); Platelet Count 447 K/mm3 (150-450); RBC Distribution Width CV 13.1 % (11.6-14.6); RBC Distribution Width SD 44.5 fl (35.1-43.9); Red Blood Count 4.75 M/mm3 (4.2-5.4); White Blood Count 10.3 K/mm3 (4.4-11.0)
[2022-12-26 13:16] LABS: ALB/GLOB Ratio 0.8 RATIO (0.9-2.4); AST(SGOT) 20 U/L (15-37); Alanine Aminotransfer ALT/SGPT 31 U/L (13-56); Albumin, Serum 3.5 g/dL (3.2-5.0); Alkaline Phosphatase 79 U/L (45-117); Anion Gap 4 (5-15); BUN 13 mg/dL (7-18); Calcium,Total 8.9 mg/dL (8.5-10.1); Chloride 107 mmol/L (98-107); Cholesterol 196 mg/dL (200); Creatinine, Serum 0.87 mg/dL (0.55-1.02); EST Glomerular Filtration Rate 77 mL/min (>60); Est Glom Filt Rate - Afr Amer 94 mL/min (>60); Globulin 4.2 g/dL (2.2-4.2); Glucose 93 mg/dL (74-106); High Density Lipoprotein 40 mg/dL; Protein, Total 7.7 g/dL (6.4-8.2); Sodium Level 137 mmol/L (136-145); Triglycerides 91 mg/dL; Very Low Density Lipoprotein 18 mg/dL (5-40)
== END | disposition home or self-care (01) ==
LOC: LAB 11:30
PROVIDERS: PCP Internal Medicine; Referring Provider Internal Medicine; Visit Provider Internal Medicine
DX: Z00.00 Encounter for general adult medical examination without abnormal findings (principal)
CPT/HCPCS: 36415; 80053; 80061; 85025

== ENCOUNTER → 2023-08-10 | Outpatient (CLI) | payer OTHER, SELFPAY ==
--- NOTE | 2023-08-10 15:40 | US_ITS ---
INDICATION: abnormal bleeding with IUD. EXAMINATION: Ultrasound US Pelvis Non OB Complete With Transvaginal Imaging TECHNIQUE: Transabdominal and transvaginal pelvic ultrasound was performed. Grayscale, spectral waveform, and color flow Doppler evaluation of the adnexa. COMPARISON: No relevant prior comparison study available FINDINGS: UTERUS: Retroverted. The uterus measures 9 x 4.6 x 3.8 cm. There are several fibroids the largest measures 1.4 cm. The endometrial stripe measures 2 mm in AP diameter which is within normal limits. And IUD is seen in good position. RIGHT OVARY: 3.2 x 2 x 1.8 cm. Non-enlarged, normal echogenicity. There is normal arterial inflow and venous outflow present in the right ovary. LEFT OVARY: 3.1 x 2 x 1.8 cm. Non-enlarged, normal echogenicity. There is normal arterial inflow and venous outflow present in the left ovary. FREE FLUID: None. US/Pelvic w/ Transvaginal IMPRESSION: There are several fibroids the largest measures 1.4 cm. Electronically Signed: Jillian Moore MD at 0:59 EST ,
--- OUTSIDE RECORDS SUMMARY | 2023-08-10 18:26 | XMS RPT_ITS | CCD ---
Author Name Unknown Address [address] [place] [address] Organization [facility] Care Team Providers Care Elevator Conductor Name Role Phone Ever Martinez MD Unavailable Ever Martinez MD Primary Care Provider Ever Martinez MD Unavailable EVER MARTINEZ Primary Care Unavailable Allergies Allergy Classification Reported Allergen(s) Allergy Type Date of Onset Reaction(s) Facility (3 sources) House dust mite; Translations: [DUST MITES] Propensity to adverse reactions 6 Cough [facility] Work Phone: (3 sources) hydroCHLOROthiazi de; Translations: [HYDROCHLOROTHIAZ RITU] Drug Allergy 4 Other: See Comments [facility] (3 sources) NITROFURANTOIN, MACROCRYSTALS / Nitrofurantoin, Monohydrate; Translations: [NITROFURANTOIN MONOHYD/M-CRYST] Drug Allergy 3 GI Upset [facility] (3 sources) Onion extract; Translations: [ONION] Drug Allergy 5 GI Upset [facility] (3 sources) traMADol; Translations: [TRAMADOL] Drug Allergy 9 Itching [facility] Work Phone: (2 sources) molds [Other] Propensity to adverse reactions 6 Cough [facility] Work Phone: (1 source) OTHER; Translations: [OTHER] Propensity to adverse reactions (disorder) 6 [facility] [place] [facility] Medications Current Medications Medication Drug Class(es) Dates Sig (Normalized) Sig (Original) [id number] 200 actuat albuterol 0.09 mg/actuat metered dose inhaler (2 sources) beta2-Adrenergic Agonist Start: 12-05-2014 End: 04-12-2022 take 2 puff(s) by inhalation every four hours as needed for cough albuterol HFA (PROVENTIL HFA, VENTOLIN HFA) 90 mcg/actuation inhaler Inhale 2 Puffs as instructed every 4 hours as needed (for cough, wheezing, chest tightness or shortness of breath. Use with spacer. ). 1 Inhaler 2 12/05/2014 04/12/2022 Discontinued (Course of therapy completed) Completed/Discontinued Medications Medication Drug Class(es) Dates Sig (Normalized) Sig (Original) amLODIPine 5 mg oral tablet (1 source) Dihydropyridine Calcium Channel Alfonzo take 1 tablet by mouth once daily amLODIPine (NORVASC) 5 mg tablet amlodipine 5 mg tablet TAKE 1 TABLET BY MOUTH EVERY DAY 0 Active Problems Active Problems Problem Classification Problem Date Documented Da te Episodic/Chronic Allergic reactions (2 sources) Allergic rhinitis due to food; Translations: [Allergic rhinitis due to food] Onset: 06-18-2006 06-17-2021 Chronic Asthma (2 sources) Moderate persistent asthma controlled; Translations: [Moderate persistent asthma, uncomplicated] Onset: 08-28-2015 06-17-2021 Chronic Essential hypertension (2 sources) Benign essential hypertension; Translations: [Essential (primary) hypertension] Onset: 08-16-2013 08-16-2013 Chronic Other upper respiratory infections (1 source) Sore throat symptom; Translations: [Acute pharyngitis, unspecified] Episodic Past or Other Problems Problem Classification Problem Date Documented Date Episodic/Chronic Hemorrhage during ; abruptio placenta; placenta previa (2 sources) Low lying placenta; Translations: [Low lying placenta NOS or without hemorrhage, second trimester] Onset: 05-19-2016 05-19-2016 Episodic Other complications of (2 sources) First trimester ; Translations: [Supervision of with history of infertility, first trimester] Onset: 02-21-2016 06-18-2021 Episodic Other complications of (2 sources) H/O: myomectomy; Translations: [Maternal care due to uterine scar from other previous surgery] Onset: 02-21-2016 06-18-2021 Episodic Other complications of (2 sources) RhD negative; Translations: [Other specified related conditions, unspecified trimester] Onset: 02-27-2016 02-27-2016 Episodic Residual codes; unclassified (2 sources) FH: Hypertension; Translations: [Personal history of other complications of , childbirth and the puerperium] Onset: 02-21-2016 08-12-2016 Episodic Residual codes; unclassified (2 sources) FH: Congenital anomaly; Translations: [Family history of other congenital malformations, deformations and chromosomal abnormalities] Onset: 02-21-2016 06-18-2021 Episodic Results Test Name Value Interpretation Reference Range Facil ity Vital Signs Date Time Vital Sign Value Performing Clinician Faci lity 04-12-2022 08:25-0400 Body temperature 97.9 [degF] Aye Older CHIEF OF PLANNING.SUPERCHARGER MECHANIC Work Phone: [facility] 04-12-2022 08:25-0400 Body weight 106.32 kg Aye Older CHIEF OF PLANNING.SUPERCHARGER MECHANIC Work Phone: [facility] 04-12-2022 08:25-0400 Diastolic blood pressure 84 mm[Hg] Aye Older CHIEF OF PLANNING.SUPERCHARGER MECHANIC Work Phone: [facility] 04-12-2022 08:25-0400 Heart rate 117 /min Aye Older CHIEF OF PLANNING.SUPERCHARGER MECHANIC Work Phone: [facility] 04-12-2022 08:25-0400 Respiratory rate 20 /min Aye Older CHIEF OF PLANNING.SUPERCHARGER MECHANIC Work Phone: [facility] 04-12-2022 08:25-0400 SaO2% (BldA) [Mass fraction] 97 % Aye Older CHIEF OF PLANNING.SUPERCHARGER MECHANIC Work Phone: [facility] 04-12-2022 08:25-0400 Systolic blood pressure 112 mm[Hg] Aye Older CHIEF OF PLANNING.SUPERCHARGER MECHANIC Work Phone: [facility] Encounters Encounter Date Encounter Type Care Provider Facility Start: 04-12-2022 End: 04-12-2022 [facility] Facility:[facility] Start: 04-12-2022 End: 04-12-2022 Patient encounter procedure Aye Older CHIEF OF PLANNING.SUPERCHARGER MECHANIC Work Phone: [facility] Procedures Date Procedure Procedure Detail Performing Clinician Start: 04-12-2022 STREP A MOLECULAR (POC) Aye Older CHIEF OF PLANNING.SUPERCHARGER MECHANIC Work Phone: Plan of Treatment Date Care Activity Detail Author Start: 06-25-2026 Urine microalbumin profile DTAP,TDAP,TD (3 - Td or Tdap) [facility] Start: 02-20-2022 Influenza vaccination INFLUENZA (Sea son Ended) [facility] Start: 06-22-2021 DEPRESSION ASSESSMENT DEPRESSION ASS ESSMENT [facility] Start: 03-21-2021 HPV TESTING HPV TESTING [facility] Start: 03-21-2021 PAP TESTING PAP TESTING [facility] Start: 10-19-2020 COVID-19 VACCINE (3 - Booster for Moderna series) COVID-19 VACCINE (3 - Booster for Moderna series) [facility] Start: 12-09-2012 PNEUMOCOCCAL (2 - PCV) PNEUMOCOCCAL (2 - PCV) [facility] Start: 02-23-2002 ANNUAL PCP TEAM SURVEY ASSOCIATE LUIS DISEASE VISIT ANNUAL PCP TEAM CHRONIC DISEASE VISIT [facility] Start: 02-23-2002 BP CONTROLLED (<130/80) BP CONTROLLE D (<130/80) [facility] Start: 02-23-2002 HEPATITIS C SCREENING HEPATITIS C SC REENING [facility] Start: 1996 Adult depression screening assessment DEPRESSION SCREENING [facility] Start: 02-23-1989 COVID-19 VACCINE (1) COVID-19 VACCIN E (1) [facility] Start: 1984 HEPATITIS B (1 of 3 - 3-dose series) HEPATITIS B (1 of 3 - 3-dose series) [facility] Immunizations Immunization Date Immunization Notes Care Provider Taz thao 03-22-2019 influenza, seasonal, injectable [place] Provider [facility] 06-25-2016 RHO(D) immune globul in- IV or IM [place] Provider [facility] Work Phone: 06-25-2016 tetanus toxoid, redu raciel diphtheria toxoid, and acellular pertussis vaccine, adsorbed [place] Provider [facility] 03-25-2016 influenza, injectabl e, quadrivalent, contains preservative [place] Provider [facility] 03-20-2014 influenza, seasonal, injectable [place] Provider [facility] 04-16-2013 influenza virus vacc ine, unspecified formulation [place] Provider [facility] 12-10-2011 pneumococcal polysaccharide vaccine, 23 valent [place] Provider [facility] 03-20-2011 influenza virus vacc ine, unspecified formulation [place] Provider [facility] 04-20-2006 influenza virus vacc ine, unspecified formulation [place] Provider [facility] Work Phone: 12-12-2005 diphtheria and tetan us toxoids, adsorbed for pediatric use [place] Provider [facility] Work Phone: 04-10-2005 influenza virus vacc ine, unspecified formulation [place] Provider [facility] Work Phone: Payers Date Payer Category Payer Unknown [employer] P[employer] [id number] 2021-Present [phone] [address] [place] [address] PPO [id number] 2021 Unknown [id number] Social History Date Type Detail Facility Start: 04-12-2022 Tobacco smoking stat [facility] Never smoked tobacco [facility] Start: 01-05-2017 End: 04-12-2022 Alcohol intake Current non-drinker of alcohol (finding) [facility] Start: 1985 Sex Assigned At Not on file [facility] Start: 04-12-2022 Tobacco use and exposure Smoke less tobacco non-user [facility] Progress note 04-12-2022 Note Date & Type Note Facility 04-12-2022 Note HNO ID: [id number] Author: Aye Ventura APRN.SUPERCHARGER MECHANIC Service: ? Author Type: Nurse Practitioner Type: Progress Notes Filed: 04/12/2022 8:52 AM Note Text: CC: Patient presents with: Sore Throat: X4 days HPI: Sia Mueller is a 37 year old female who presents to the office with complaint of sore throat 4 days. Associated symptoms includes chills. Denies nasal congestion, rhinorrhea, post nasal drip, headache, body aches, fever, cough, wheezing, dyspnea, and dysphagia. Treatments tried include nothing so far. 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 Did not take COVID test The ROS is otherwise negative. The patient's pmh, medications, allergies, and past visits are reviewed. PHYSICAL EXAM: BP 112/84 Pulse 117 Temp 36.6 ?C (97.9 ?F) Resp 20 Wt 106.3 kg (234 lb 6.4 oz) LMP 12/20/2015 (Exact Date) SpO2 97% BMI 39.01 kg/m? General appearance: tired/ill appearing, alert, cooperative, pleasant, in no acute distress Head: Normocephalic Eyes: conjunctiva pink and moist, no icterus, sclera white, non-injected Ears: Right ear: External ear/canal- Normal, TM - clear with good landmarks. Left ear: External ear/canal- Normal, TM - clear with good landmarks Oropharynx:marked erythema, without exudates present, tonsillar hypertrophy: 2+ Neck:supple and positive findings: few small anterior cervical nodes Heart: Negative. RRR without obvious murmur, gallop, or rubs. No ectopy. Lungs: clear to auscultation, without rales or wheeze, good air exchange ASSESSMENT/PLAN: 1. Sore throat - ICD9: 462, ICD10: J02.9 - Strep PCR positive - Discussed supportive care treatment with fluids, rest and analgesia. - The patient may also use warm salt water gargles, throat lozenges and/or OTC throat spray as needed. - Contagious dz precautions discussed- including considered contagious until on antibiotics for 24 hours - The patient should follow up in 3-5 days if symptoms persist or worsen - STREP A MOLECULAR (POC) Prescription instructions reviewed with patient as applicable. Potential red flag symptoms discussed with the patient. Reviewed appropriate action plan to take if red flag symptoms occur. Patient agreeable to treatment plan. Aye Ventura APRN.CNP [facility] Instructions 04-12-2022 Patient Instructions Note Date & Type Note Facility 04-12-2022 Instructions Aye Ventura APRN.CNP - 04/12/2022 8:43 AM EDT General: - For adults or children old enough to gargle, prepare a soothing tea gargle. Double the usual strength of tea, and gargle warm or cold as often as it feels good. - Use a cool-mist, ultrasonic humidifier to provide moisture. This relieves the dry, tight felling in the throat. Clean humidifier daily. - Use warm soaks to relieve pain in swollen glands. Medication: - Antibiotics as prescribed. Finish the complete prescription, even if symptoms subside. - Non-prescription pain medicine, such as acetaminophen, if needed. Activity: - After treatment, resume normal activity as symptoms improve. - Children may return to school 5 days after beginning antibiotics and fever is normal for 24 hours. Diet: - A liquid diet may be necessary while the throat is sore. Notify our office if the following occur during treatment: - Temperature is normal for 1 or 2 days, then fever develops. - New symptoms appear, such as nausea, vomiting, earache, cough, swollen glands, skin rash, severe headache, nasal drainage, or shortness of breath. - Joints become red or painful. - Dark urine, rash, chest pain, or fatigue (may occur up to 3 to 4 weeks later). documented in this encounter [facility] History of Present illness Narrative 04-12-2022 Aye Ventura APRN.CNP - 04/12/2022 8:29 AM EDT Note Date & Type Note Facility 04-12-2022 History of Presen t illness Narrative CC: Patient presents with: Sore Throat: X4 days HPI: Sia Mueller is a 37 year old female who presents to the office with complaint of sore throat 4 days. Associated symptoms includes chills. Denies nasal congestion, rhinorrhea, post nasal drip, headache, body aches, fever, cough, wheezing, dyspnea, and dysphagia. Treatments tried include nothing so far. 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 Did not take COVID test The ROS is otherwise negative. The patient's pmh, medications, allergies, and past visits are reviewed. PHYSICAL EXAM: BP 112/84 Pulse 117 Temp 36.6 C (97.9 F) Resp 20 Wt 106.3 kg (234 lb 6.4 oz) LMP 12/20/2015 (Exact Date) SpO2 97% BMI 39.01 kg/m General appearance: tired/ill appearing, alert, cooperative, pleasant, in no acute distress Head: Normocephalic Eyes: conjunctiva pink and moist, no icterus, sclera white, non-injected Ears: Right ear: External ear/canal- Normal, TM - clear with good landmarks. Left ear: External ear/canal- Normal, TM - clear with good landmarks Oropharynx:marked erythema, without exudates present, tonsillar hypertrophy: 2+ Neck:supple and positive findings: few small anterior cervical nodes Heart: Negative. RRR without obvious murmur, gallop, or rubs. No ectopy. Lungs: clear to auscultation, without rales or wheeze, good air exchange ASSESSMENT/PLAN: 1. Sore throat - ICD9: 462, ICD10: J02.9 - Strep PCR positive - Discussed supportive care treatment with fluids, rest and analgesia. - The patient may also use warm salt water gargles, throat lozenges and/or OTC throat spray as needed. - Contagious dz precautions discussed- including considered contagious until on antibiotics for 24 hours - The patient should follow up in 3-5 days if symptoms persist or worsen - STREP A MOLECULAR (POC) Prescription instructions reviewed with patient as applicable. Potential red flag symptoms discussed with the patient. Reviewed appropriate action plan to take if red flag symptoms occur. Patient agreeable to treatment plan. Aye Ventura APRN.CNP documented in this encounter [facility] Progress note 10-03-2021 Note Date & Type Note Facility 10-03-2021 Note HNO ID: [id number] Author: Jan Michel Provider Service: ? Author Type: Physician Type: Progress Notes Filed: 10/03/2021 5:18 PM Note Text: null (CCF:Not available [id number]) Visit Summary for Sia Mueller - Gender: Female - Date of : 1985 ( ) Date: [id number] - Duration: 1 minutes Patient: Sia Mueller Provider: Subha Navarro Patient Contact Information Address [address] [facility] [phone] Visit Topics Possible pink eye [Added By: Self - 2021-10-03] Triage Questions REQUIRED: Do you have Medicare or Medicaid Insurance?Answer [No] Do you have a cough, shortness of breath, difficulty breathing, fever, chills, headache, sore throat, muscles aches, acute change in smell or taste?Answer [No] Have you been in contact with anyone confirmed with COVID 19 or suspected of having COVID 19 within the past 14 days?Answer [No] Do you have any vulnerable family members in the home (infant, , weak immune system, lung disease, active cancer, elderly)?Answer [No] Do you have any of the following: weak immune system, asthma or chronic lung disease, kidney problems and on dialysis, active cancer, diabetes or heart disease or high blood pressure, HIV or organ transplant?Answer [Asthma] Are you currently working in a healthcare facility?Answer [No] What is the address where you are currently located? This is important in case of a medical emergency.Answer [[address], [place] [id number]] Please enter a number I can contact you in the event we are disconnected.Answer [[phone]] Conversation Transcripts [Notification] Practice Staff, Global Staff, will help you prepare for your visit. She is assisting Subha Navarro, Family Physician.[Practice Staff] Joe, and thank you for connecting. While you are waiting for the doctor, are there any questions I can answer for you about our service? Please contact customer service if you have questions about billing, insurance, or technical issues. Visits work best with a stable WiFi connection, so please make sure you are connected before we begin.[Notification] Practice Staff has left the room.[Notification] You are connected with Subha Navarro Family Physician.[Notification] Sia Mueller is located in [place].[Notification] Sia Mueller has shared health history... Diagnosis Acute follicular conjunctivitis, bilateral Value: H10.013 Code: ICD-10-CM Procedures Value: 17018 Code: CPT-4 OFFICE/OUTPATIENT VISIT EST Medications Prescribed ofloxacin Dose : 2 drops Strength : 0.3 % Route : ophthalmic (eye) Frequency : 4 times a day. Until directed to stop. Patient Instructions : on both eyes x 7 days Refills : 0 Instructions to the Pharmacist : Substitutions allowed amlodipine Frequency : Flovent HFA Frequency : labetalol Frequency : nortriptyline Frequency : Provider Notes We strongly encourage you to share the following record of today's visit with your primary care physician. Contact phone numberMode of communication:videoPMH: For more than a day patient has had irritated eye with purulent drainage, crusting of lashes in the morning, and redness. No visual disturbance, no pain in eye, itching or burning, no trauma or exposure to flying debris. No c/o fever or other URI symptom. Pt does not wear contacts. PMH: nonePSH: noneMeds: noneAllergies: NKDAPE: Gen: Well appearing, NADEyes: Visually there is injection of bulbar and palpebral conjunctiva. Extraocular movements are intact. There is no discharge noted.Assessment: Conjunctivitis Diagnosis Code: Conjunctivitis H10.31 (right), H10.32 (left), H10.33 (bilat)Plan: 1.Discussed treatment options. I am sending you a prescription as described below. 2.Discussed precautions including soap and water hand washing. Follow up:1.If there are any questions or problems with the prescription, call [phone] anytime for assistance. 2.Please re-connect for another online visit or see an in-person provider should symptoms worsen or persist for more than 2-3 days. 3.Please print a copy of this note and send it to your regular doctor, or take it to your next visit so it may be included in your medical record. Patient voiced understanding and agreement with plan.Please see your PCP on an annual basis Electronically signed by: Subha Navarro( ) [facility] History of Present illness Narrative 10-03-2021 Jan Michel Provider - 10/03/2021 5:14 PM EDT Note Date & Type Note Facility 10-03-2021 History of Presen t illness Narrative null (CCF:Not available [id number]) Visit Summary for Sia Mueller - Gender: Female - Date of : 1985 ( ) Date: [id number] - Duration: 1 minutes Patient: Sia Mueller Provider: Subha Navarro Patient Contact Information Address [address] [place] [phone] Visit Topics Possible pink eye [Added By: Self - 2021-10-03] Triage Questions REQUIRED: Do you have Medicare or Medicaid Insurance?Answer [No] Do you have a cough, shortness of breath, difficulty breathing, fever, chills, headache, sore throat, muscles aches, acute change in smell or taste?Answer [No] Have you been in contact with anyone confirmed with COVID 19 or suspected of having COVID 19 within the past 14 days?Answer [No] Do you have any vulnerable family members in the home (, , weak immune system, lung disease, active cancer, elderly)?Answer [No] Do you have any of the following: weak immune system, asthma or chronic lung disease, kidney problems and on dialysis, active cancer, diabetes or heart disease or high blood pressure, HIV or organ transplant?Answer [Asthma] Are you currently working in a healthcare facility?Answer [No] What is the address where you are currently located? This is important in case of a medical emergency.Answer [[address] [place] [address] [address], [place] [address]] Please enter a number I can contact you in the event we are disconnected.Answer [[phone]] Conversation Transcripts [Notification] Practice Staff, Global Staff, will help you prepare for your visit. She is assisting Subha Navarro, Family Physician.[Practice Staff] Joe, and thank you for connecting. While you are waiting for the doctor, are there any questions I can answer for you about our service? Please contact customer service if you have questions about billing, insurance, or technical issues. Visits work best with a stable WiFi connection, so please make sure you are connected before we begin.[Notification] Practice Staff has left the room.[Notification] You are connected with Subha Navarro Family Physician.[Notification] Sia Mueller is located in [place].[Notification] Sia Mueller has shared health history... Diagnosis Acute follicular conjunctivitis, bilateral Value: H10.013 Code: ICD-10-CM Procedures Value: 97168 Code: CPT-4 OFFICE/OUTPATIENT VISIT EST Medications Prescribed ofloxacin Dose : 2 drops Strength : 0.3 % Route : ophthalmic (eye) Frequency : 4 times a day. Until directed to stop. Patient Instructions : on both eyes x 7 days Refills : 0 Instructions to the Pharmacist : Substitutions allowed amlodipine Frequency : Flovent HFA Frequency : labetalol Frequency : nortriptyline Frequency : Provider Notes We strongly encourage you to share the following record of today's visit with your primary care physician. Contact phone numberMode of communication:videoPMH: For more than a day patient has had irritated eye with purulent drainage, crusting of lashes in the morning, and redness. No visual disturbance, no pain in eye, itching or burning, no trauma or exposure to flying debris. No c/o fever or other URI symptom. Pt does not wear contacts. PMH: nonePSH: noneMeds: noneAllergies: NKDAPE: Gen: Well appearing, NADEyes: Visually there is injection of bulbar and palpebral conjunctiva. Extraocular movements are intact. There is no discharge noted.Assessment: Conjunctivitis Diagnosis Code: Conjunctivitis H10.31 (right), H10.32 (left), H10.33 (bilat)Plan: 1.Discussed treatment options. I am sending you a prescription as described below. 2.Discussed precautions including soap and water hand washing. Follow up:1.If there are any questions or problems with the prescription, call [phone] anytime for assistance. 2.Please re-connect for another online visit or see an in-person provider should symptoms worsen or persist for more than 2-3 days. 3.Please print a copy of this note and send it to your regular doctor, or take it to your next visit so it may be included in your medical record. Patient voiced understanding and agreement with plan.Please see your PCP on an annual basis Electronically signed by: Subha Navarro( ) documented in this encounter [facility] History of Past illness Narrative 02-21-2016 Note Date & Type Note Facility documented as of this encounter (statuses as of 10/03/2021) [facility] History of Past illness Narrative 02-21-2016 Note Date & Type Note Facility documented as of this encounter (statuses as of 04/12/2022) [facility] Evaluation note Note Date & Type Note Facility documented in this encounter [facility] Summary Purpose Family History No Family History Records Found Advance Directives No Advanced Directives Records Found Additional Source Comments Source Comments (unrecognize d section and content) In the event this informatio n is protected by the Federal Confidentiality of Alcohol and Drug Abuse Patient Records regulations: The Federal rules restrict any use of the information to criminally investigate or prosecute any alcohol or drug abuse patient.[facility] the event this information is protected by the Federal Confidentiality of Alcohol and Drug Abuse Patient Records regulations: The Federal rules restrict any use of the information to criminally investigate or prosecute any alcohol or drug abuse patient.[facility] Care Teams (unrecognized sec tion and content) Elevator Conductor Relationship Specialty Start Date End Date Ever Martinez MD [address] [place] [address] Internal Medicine 08/28/15 Reason for Visit (unrecogniz ed section and content) INFORMATION SOURCE (unrecogn ized section and content) FOR RECORDS PERTAINING TO PATIENTS WHO ARE OR HAVE BEEN ENROLLED IN A CHEMICAL DEPENDENCY/SUBSTANCEABUSE PROGRAM, SOME INFORMATION MAY BE OMITTED. This clinical summary was aggregated from multiple sources. Caution should be exercised in using it in the provision of clinical care. This summary normalizes information from multiple sources, and as a consequence, information in this document may materially change the coding, format and clinical context of patient data. In addition, data may be omitted in some cases. CLINICAL DECISIONS SHOULD BE BASED ON THE PRIMARY CLINICAL RECORDS. [facility]. provides no warranty or guarantee of the accuracy or completeness of information in this document.
== END | disposition home or self-care (01) ==
PROVIDERS: PCP Internal Medicine; Referring Provider Obstetrics & Gynecology; Visit Provider Obstetrics & Gynecology
DX: N93.9 Abnormal uterine and vaginal bleeding, unspecified (principal); Z97.5 Presence of (intrauterine) contraceptive device
CPT/HCPCS: 76830; 76856

== ENCOUNTER → 2023-10-16 | Outpatient (CLI) | payer OTHER, SELFPAY ==
--- NOTE | 2023-10-16 | CER_PTH ---
PATIENT: SIA ZHENG LOC: [facility] U#:[id number] AGE/SX: 38/F ROOM: RE10/16/[address]: Dr. Yolie Sims DO : 1985 BED: DIS: 10/16/2023 SPEC #: [id number] RECD: 10/16/23 16:29 STATUS: JUAN REPreston #: [id number] EUGENIO: 10/16/23 00:[address]: Yolie Sims DEPT: SURGICAL PATHOLOGY RECD BY: Murali Shaw ENTERED: 10/19/23 10:52 SP TYPE: CERV OTHR DR: Dr. Aline Chávez MD Tissues: Uterine cervix, NOS Procedures: Surgery Specimen Level IV HEADER OPERATION: Cervical polypectomy PRE-OP DIAGNOSIS: Abnormal uterine bleeding TISSUE SUBMITTED: Cervical polyp MICROSCOPIC DIAGNOSIS Cervical polyp, polypectomy: Benign endocervical polyp with associated acute and chronic inflammation. AM/mr 10/20/2023 MICROSCOPIC DESCRIPTION Slides are reviewed. GROSS DESCRIPTION Received in fixative is one container labeled with the patient's name and designated Cervical polyp. The specimen consists of multiple irregular fragments of light de jesus soft tissue that in aggregate measure 2.75 x 1.0 x 1.0 cm. The specimen is totally submitted in one cassette. 10/19/2023 TC:1 CPT:78979
== END | disposition home or self-care (01) ==
LOC: LABSPEC 16:50
PROVIDERS: PCP Internal Medicine; Referring Provider Obstetrics & Gynecology; Visit Provider Obstetrics & Gynecology
DX: N84.0 Polyp of corpus uteri (principal); N93.9 Abnormal uterine and vaginal bleeding, unspecified
CPT/HCPCS: 88305

== ENCOUNTER → 2023-10-27 | Outpatient (CLI) | payer OTHER, SELFPAY ==
--- NOTE | 2023-10-27 | EMB_PTH ---
PATIENT: SIA ZHENG LOC: [facility] U#:[id number] AGE/SX: 38/F ROOM: RE10/27/[address]: Dr. Yolie Sims DO : 1985 BED: DIS: 10/27/2023 SPEC #: [id number] RECD: 10/27/23 14:20 STATUS: JUAN JOHN #: [id number] EUGENIO: 10/27/23 00:[address]: Yolie Sims DEPT: SURGICAL PATHOLOGY RECD BY: Phyllis Dale ENTERED: 10/28/23 07:20 SP TYPE: ENDOM BX/C BRUNO DR: Dr. Aline Chávez MD Tissues: Endometrium, NOS Procedures: Surgery Specimen Level IV HEADER OPERATION: Endometrial biopsy PRE-OP DIAGNOSIS: Abnormal uterine bleeding TISSUE SUBMITTED: Endometrial lining MICROSCOPIC DIAGNOSIS Endometrial biopsy: Consistent with exogenous hormone effects. Fragments of benign ectocervical and endocervical epithelium. See comment. SJ/mr 10/29/23 COMMENT Clinical correlation and appropriate follow up are necessary. MICROSCOPIC DESCRIPTION Slides are reviewed. GROSS DESCRIPTION Received in fixative is one container labeled with the patient's name and designated Endometrial lining. The specimen consists of one irregular fragment of pink-de jesus soft tissue that measures 1.5 x 1.0 x 0.5 cm. The specimen is totally submitted in one cassette. mr 10/28/23 TC:5 CPT:07315
== END | disposition home or self-care (01) ==
LOC: LABSPEC 14:29
PROVIDERS: PCP Internal Medicine; Referring Provider Obstetrics & Gynecology; Visit Provider Obstetrics & Gynecology
DX: N93.9 Abnormal uterine and vaginal bleeding, unspecified (principal)
CPT/HCPCS: 88305

== ENCOUNTER → 2023-11-23 | Outpatient (CLI) | payer OTHER, SELFPAY | END | disposition home or self-care (01) | LOC: LAB 15:27 | PROVIDERS: PCP Internal Medicine; Referring Provider Internal Medicine; Visit Provider Internal Medicine | DX: Z00.00 Encounter for general adult medical examination without abnormal findings (principal) ==

== ENCOUNTER 2023-12-01 07:55 | Day surgery (SDC) | payer OTHER, SELFPAY ==
[2023-11-23 16:45] LABS: Absolute Neutrophil Count 6.8 X10^3/uL (2.0-7.7); Basophil# 0.11 X10^3/uL; Basophil% 1.1 % (0-1); Eosinophil# 0.38 X10^3/uL; Eosinophils% 3.7 % (0-5); Hemoglobin 13.9 g/dL (12.0-15.0); Lymphocyte % 21.6 % (19-41); Mean Corp Hgb Conc 33.1 g/dL (32-36); Mean Corpuscular Hgb 30.6 pg (27.0-32.0); Mean Corpuscular Volume 92.5 fL (81-99); Mean Platelet Vol. 9.6 fl (6.2-12.0); Monocyte# 0.62 X10^3/uL; Monocyte% 6.1 % (0-10); NRBC Flagged by Analyzer 0 % (0-5); Neutrophil # 6.82 X10^3/uL (2.7-7.7); Neutrophil % 67.1 % (47-70); Platelet Count 435 K/mm3 (150-450); RBC Distribution Width CV 12.7 % (11.6-14.6); RBC Distribution Width SD 43.1 fl (35.1-43.9); Red Blood Count 4.54 M/mm3 (4.2-5.4); White Blood Count 10.2 K/mm3 (4.4-11.0)
[2023-11-23 16:47] LABS: Hematocrit 42.4 % (37-47); Hemoglobin 13.9 g/dL (12.0-15.0); Mean Corp Hgb Conc 32.8 g/dL (32-36); Mean Corpuscular Hgb 30.2 pg (27.0-32.0); Mean Corpuscular Volume 92.2 fL (81-99); Mean Platelet Vol. 9.5 fl (6.2-12.0); Platelet Count 444 K/mm3 (150-450); RBC Distribution Width CV 12.7 % (11.6-14.6); RBC Distribution Width SD 42.7 fl (35.1-43.9); White Blood Count 10.1 K/mm3 (4.4-11.0)
[2023-11-23 16:54] LABS: Internal QC Validated? YES +Cl - CLEAR BKGD; Pregnancy, Urine Negative Negative
[2023-11-23 16:58] LABS: Magnesium 2.2 mg/dL (1.6-2.6)
[2023-11-23 17:04] LABS: ALB/GLOB Ratio 0.9 RATIO (0.9-2.4); AST(SGOT) 23 U/L (15-37); Alanine Aminotransfer ALT/SGPT 37 U/L (13-56); Albumin, Serum 3.4 g/dL (3.2-5.0); Alkaline Phosphatase 72 U/L (45-117); Anion Gap 6 (5-15); BUN 13 mg/dL (7-18); BUN/Creat Ratio 16.1 RATIO (10-20); Calcium,Total 8.8 mg/dL (8.5-10.1); Chloride 109 mmol/L (98-107); Cholesterol 163 mg/dL (200); Creatinine, Serum 0.81 mg/dL (0.55-1.02); EST Glomerular Filtration Rate 84 mL/min (>60); Est Glom Filt Rate - Afr Amer 101 mL/min (>60); Globulin 3.8 g/dL (2.2-4.2); Glucose 105 mg/dL (74-106); High Density Lipoprotein 35 mg/dL; Protein, Total 7.2 g/dL (6.4-8.2); Sodium Level 138 mmol/L (136-145); Triglycerides 80 mg/dL; Very Low Density Lipoprotein 16 mg/dL (5-40)
[2023-12-01] VITALS (8 sets, daily range): BP systolic 117–132; BP diastolic 75–101; PULSE 76–88; RESP 14–16; TEMP 36.1–36.7; O2SAT 92–100; BMI 41.3
[2023-12-01 08:27] LABS: Internal QC Validated? YES +Cl - CLEAR BKGD; Pregnancy, Urine Negative Negative
[2023-12-01] MEDS: Lactated Ringers 1,000 ML 40 ML IV (08:43)
[2023-12-01] MEDS: Phenazopyridine 95 MG Tablet 190 MG PO (08:44)
[2023-12-01] MEDS: Acetaminophen 500 MG Tablet 1000 MG PO (08:44)
[2023-12-01] MEDS: Gabapentin 600 MG Tablet PO (08:44)
[2023-12-01] MEDS: Magnesium 1 GM over 15 mins IV (08:45)
[2023-12-01] MEDS: dexAMETHasone 4 MG/ML Vial 8 MG IV (08:45)
[2023-12-01] MEDS: Celecoxib 200 MG Capsule 400 MG PO (08:58)
--- NOTE | 2023-12-01 09:03 | HP.PCM_ITS ---
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: No Is patient in pain?: No Allergies tramadol Allergy (Verified 11/24/23 15:48) HivesEnvironmental Allergies: Uncoded (dust mites) Adverse Reaction (Verified 11/24/23 15:48) Itchinghydrochlorothiazide Adverse Reaction (Verified 11/24/23 15:48) Othermold Adverse Reaction (Verified 11/24/23 15:48) Itchingnitrofurantoin (From Macrobid) Adverse Reaction (Verified 11/24/23 15:48) Upset Stomachnitrofurantoin macrocrystalline (From Macrobid) Adverse Reaction (Verified 11/24/23 15:48) Upset Stomachonion Adverse Reaction (Verified 11/24/23 15:48) VomitingBACLOFEN Allergy (Mild, Uncoded 11/23/23 14:46) Rash Medications ?Medication ?Instructions ?Recorded ?Confirmed ?Type levonorgestrel 21 mcg/24 hr (up to 1 insert intrauterine ONCE 09/15/17 11/24/23 History 8 years) 52 mg intrauterine device (Mirena) levocetirizine 5 mg tablet (Xyzal) 5 mg PO DAILY 01/20/19 11/24/23 History fluticasone propionate 50 2 spray intranasal DAILY 01/30/22 11/24/23 History mcg/actuation nasal spray,suspension (Flonase Allergy Relief) lorazepam 0.5 mg tablet 0.5 mg PO BID PRN anxiety #14 tabs 03/04/23 11/24/23 Rx levalbuterol tartrate 45 2 inh inhalation Q6H PRN shortness 04/20/23 11/24/23 Rx mcg/actuation aerosol inhaler of breath or wheezing #15 grams (Xopenex HFA) amlodipine 5 mg tablet 5 mg PO DAILY #90 tabs 07/27/23 11/24/23 Rx budesonide 180 mcg/actuation 1 inh inhalation BID 3 months #1 ea 07/27/23 11/24/23 Rx breath activated powder inhaler (Pulmicort Flexhaler) escitalopram oxalate 20 mg tablet 20 mg PO DAILY #90 tabs 07/27/23 11/24/23 Rx (Lexapro) famotidine 20 mg tablet See Rx Instructions .Route 07/27/23 11/24/23 Rx .COMPLEX #180 tabs nortriptyline 25 mg capsule 25 mg PO QHS #90 caps 07/27/23 11/24/23 Rx buspirone 10 mg tablet 5 mg PO BID 11/23/23 11/24/23 History labetalol 200 mg tablet 100 mg PO DAILY 11/23/23 11/24/23 History labetalol 200 mg tablet 200 mg PO QHS 11/23/23 11/24/23 History Post menopausal: No Patient : No : No PFSH Medical History Migraine headache History of hiatal hernia History of edema Generalized anxiety disorder Preventative health care Wears glasses Non-smoker Shortness of breath on exertion Chronic cough History of irregular heartbeat GERD (gastroesophageal reflux disease) Hoarseness Lymphadenopathy of head and neck region Localized swelling, mass and lump, neck Flu vaccine need Arthritis Hyperlipidemia Hypoglycemia History of hypertension Frequent headaches Asthma Seasonal allergies Surgical History History of esophagogastroduodenoscopy (EGD) History of wisdom tooth extraction History of myomectomy Status post surgical removal of neoplasm of skin Family History Father Asthma Arthritis Colon cancer Cancer Prostate HypertensionMother Hypertension Hyperlipidemia Social History number of children: 1 current occupational status: employed 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 She tried and failed treatment with an IUD for persistent bleeding. A Cevical polyp was removed the last time she was here and was benign. ultrasound showed the following. FINDINGS: UTERUS: Retroverted. The uterus measures 9 x 4.6 x 3.8 cm. There are several fibroids the largest measures 1.4 cm. The endometrial stripe measures 2 mm in AP diameter which is within normal limits. And IUD is seen in good position. RIGHT OVARY: 3.2 x 2 x 1.8 cm. Non-enlarged, normal echogenicity. There is normal arterial inflow and venous outflow present in the right ovary. LEFT OVARY: 3.1 x 2 x 1.8 cm. Non-enlarged, normal echogenicity. There is normal arterial inflow and venous outflow present in the left ovary. FREE FLUID: None. US/Pelvic w/ Transvaginal IMPRESSION: There are several fibroids the largest measures 1.4 cm. History 1 Elective abortions Hx Para 0 Spontaneous abortions Hx # Term Pregnancies Ectopic pregnancies Hx # Pregnancies Multiple births # of living children 1 Past Pregnancies Del. Date Name GA/Weeks Outcome Route Bth Weight Gen Labor Lgth Anesthesia Del Locatn Provider FOB Unknown Jagdish 2016 39 live - 7lbs 11 oz 34 hrs epidural WC Alcides ROS Const ROS Unobtainable: All systems reviewed & are unremarkable except as noted in H Resp Resp: Reports system reviewed and no additional complaints, except as documented; Denies cough GI GI: Reports as per HPI Psych Psych: Reports system reviewed and no additional complaints, except as documented Exam Const General: cooperative, healthy appearing, comfortable and no acute distress Resp Effort & Inspection: normal respiratory effort Skin General: no rashes or lesions noted Psych Appearance: grossly normal Speech and Movement: speech and movement normal Coding Level of Care Code Off vis,est,level 4 Diagnoses Fibroid uterus D25.9 Cervical polyp N84.1 Abnormal uterine bleeding N93.9 Assessment and Plan Assessment and Plan (1) Fibroid uterus: Status: Acute (2) Cervical polyp: Status: Acute (3) Abnormal uterine bleeding: Status: Acute After discussing the patient's diagnosis and treatment plan options, patient wishes to proceed with surgical management. I have discussed with the patient the risks, benefits, and alternatives of the procedure which include but are not limited to risks of anesthesia, bleeding, infection, possible damage to bowel, bladder, or surrounding vasculature which could lead to additional surgery to evaluate any complications. Patient agrees to procedure and wishes to proceed. ACOG/uptodate references given for additional information regarding procedure. The plan is for a total robotic hysterectomy, bilateral salpingectomy, and cystoscopy
--- NOTE | 2023-12-01 09:03 | PCM.DC ---
Discharge Instructions Diet Discharge Diet: No restrictions Activity May resume sexual activity in: 6 weeks Weight Bearing Status: Full weight bearing Dressing / Incision Call your doctor if your incision/area has: Continuous Slow Oozing, Sudden Increased Bleeding, Increased Pain/ Swelling, Increased Redness and Foul Smelling Discharge Call your doctor if you observe: Fever of 101 or Higher, Using more than 1 pad per hour, Shortness of breath, Chest pain and Uncontrolled pain Suture Line Care: Avoid Pulling/Pushing and Avoid Pinching/Bending Remove Dressing in: 1 week (if present) Cleanse incision/area with: Soap & Water and Keep Dressing Clean & Dry Follow Up Care Please Follow Up With: Yolie Sims DO When: Call to make an appointment with your doctor for a postop visit in 2 and 6 weeks Test Results: Test results from this visit will be discussed in further detail at your follow-up appointment, if applicable. Discharge Plan Admission Primary Reason for Your Visit: hysterectomy Attending Provider: Yolie Sims Primary Care Provider: Aline Chávez Instructions Print Language: Mongolian Discharge Orders/Prescriptions Prescriptions: New ibuprofen 800 mg tablet 800 mg PO Q8H PRN (Reason: pain) Qty: 30 0RF ondansetron HCl 4 mg tablet 4 mg PO Q6H PRN (Reason: nausea and vomiting) Qty: 20 0RF oxycodone-acetaminophen [Percocet] 5-325 mg tablet 1 tab PO Q4H PRN (Reason: pain) 7 Days Qty: 20 0RF Rx Instructions: 1-2 tabs q 4 hrs as needed for pain Continued levonorgestrel [Mirena] 20 mcg/24 hr (5 years) intrauterine device 1 insert Intrauterine ONCE levocetirizine [Xyzal] 5 mg tablet 5 mg PO DAILY fluticasone propionate [Flonase Allergy Relief] 50 mcg/actuation spray,suspension 2 spray intranasal DAILY Rx Instructions: administer into each nostril lorazepam 0.5 mg tablet 0.5 mg PO BID PRN (Reason: anxiety) Qty: 14 0RF labetalol 200 mg tablet 100 mg PO DAILY labetalol 200 mg tablet 200 mg PO QHS Rx Instructions: Take 1 tablet at night and 1/2 tablet in the morning buspirone 10 mg tablet 5 mg PO BID Rx Instructions: Take 1/2 Tablet BID levalbuterol tartrate [Xopenex HFA] 45 mcg/actuation HFA aerosol inhaler 2 inh INHALATION Q6H PRN (Reason: shortness of breath or wheezing) Qty: 15 3RF Pulmicort Flexhaler 180 mcg/actuation aerosol powdr breath activated 1 inh INHALATION BID 90 Days Qty: 1 3RF amlodipine 5 mg tablet 5 mg PO DAILY Qty: 90 3RF escitalopram oxalate [Lexapro] 20 mg tablet 20 mg PO DAILY Qty: 90 1RF famotidine 20 mg tablet See Rx Instructions .ROUTE .COMPLEX Qty: 180 2RF Dose Instruction: TAKE 1 TABLET BY MOUTH TWICE A DAY Rx Instructions: TAKE 1 TABLET BY MOUTH TWICE A DAY nortriptyline 25 mg capsule 25 mg PO QHS Qty: 90 3RF Referrals / Follow Up: Aline Chávez MD [Primary Care Provider] - Disposition Disposition (needs filled in before D/C Order can be placed): Home, Self Care
[2023-12-01 09:43] LABS: Bedside Glucose 95 mg/dL (74-106)
[2023-12-01] MEDS: Cefazolin 2 GM in 0.9% Normal Saline (100mL Bag) 100 ML IV (10:05)
--- NOTE | 2023-12-01 10:10 | HYST_PTH ---
PATIENT: SIA ZHENG LOC: [facility] [place] U#:[id number] AGE/SX: 38/F ROOM: RE12/01/[address]: Dr. Yolie Sims DO : 1985 BED: DIS: 12/01/2023 SPEC #: [id number] RECD: 12/01/23 13:43 STATUS: JUAN REPreston #: [id number] EUGENIO: 12/01/23 10:[address]: Yolie Sims DEPT: SURGICAL PATHOLOGY RECD BY: Ami Crane ENTERED: 12/01/23 14:12 SP TYPE: HYSTERECT OTHR DR: Dr. Aline Chávez MD Tissues: Uterus, NOS Procedures: Surgery Specimen Level V HEADER OPERATION: Laparoscopic robotic hysterectomy bilateral salpingectomy PRE-OP DIAGNOSIS: Fibroid, cervical polyp, abnormal uterine bleeding TISSUE SUBMITTED: Uterus, cervix, bilateral tubes MICROSCOPIC DIAGNOSIS Uterus, hysterectomy: Cervix - Nabothian cysts and mid chronic inflammation. Endometrium - Inactive to weakly proliferative endometrium with benign stromal hyperplasia. Myometrium - Leiomyomas with one microscopic benign cellular leiomyoma and focal adenosis. Right fallopian tube- No pathologic change. Left fallopian tube- No pathologic change. AM/ 12/02/2023 COMMENT Stromal hyperplasia is consistent with hormonal effect. MICROSCOPIC DESCRIPTION Slides are reviewed. GROSS DESCRIPTION Received in fixative is one container labeled with the patient's name and designated uterus, cervix, bilateral fallopian tubes. The specimen consists of a hysterectomy specimen consisting of uterus with cervix and attached bilateral fallopian tubes. The uterus with cervix weighs 70gm and measures 8.5 x 5.5 x 4.0 cm. The serosal surface is de jesus , focally ragged. A few subserosal nodules are noted. The ectocervical mucosa is unremarkable. The external os is oval in contour. The endocervical canal measures 3.5 cm in length and the endocervical mucosa is de jesus glistening and unremarkable. The uterine wall measures up to 2.0cm in thickness. Endometrium cavity is narrow and measures 3.5cm in length and up to 1.0cm in width. The endometrium is de jesus, glistening with out any mass lesions and measures 0.1 cm in thickness. Sections of the uterine wall reveal multiple intramural and subserosal nodular masses. Largest mass measures 1.7cm in greatest dimension. Right fallopian tube measures 6.0cm in length and up to 0.7cm in diameter. Fimbral end is identified. Sections reveal unremarkable cut surfaces. Left fallopian tube is similar in appearance to right and measures 6.5cm in length and up to 0.8cm in diameter. Also present in the container is detached pieces of adipose tissue with possible fimbral end measuring 1.5 x 0.5 x 0.3cm. Wire Rope Sales Representative sections are submitted in 11 cassettes as follows: 1 - anterior cervix, 2 - posterior cervix, 3 & 4 - anterior uterine wall, 5 & 6 - posterior uterine wall and nodular masses, 7- largest intramural nodular mass, 8- small intramural and subserosal nodular mass, 9- right fallopian tube, 10- left fallopian tube, 11- detached piece of tissue with fimbral end and adipose tissue. SJ: 12/01/2023 TC:1 CPT: 73967
[2023-12-01] MEDS: Bupivacaine 0.25% 30 ML Vial (10:36)
--- NOTE | 2023-12-01 11:24 | OP.PCM_ITS ---
Problems Associated Problem List Diagnoses (1) Fibroid uterus: (2) Cervical polyp: (3) Abnormal uterine bleeding: Report of Operation Date of Procedure: 12/01/23 Pre-Operative Diagnosis: menorrhagia, fibroid uterus, endometriosis Post-Operative Diagnosis: menorrhagia, fibroid uterus, endometriosis Surgery/Procedure Performed:: total robotic hysterectomy, bilateral salpingectomy, cystoscopy Description of Surgical Findings:: Findings: 9 cm size uterus, normal appearing ovaries and tubes. On exploration of the abdominal cavity the uterus, adnexa, bowel, and liver were found to be normal. There were powder burn gutierrez of endometriosis at both uterosacral ligaments and in the cul-de-sac. Cystoscopy showed no evidence of leaking at approximately 250 cc of normal saline, positive ureteral orifices and jet flow are seen and no suture material was appreciated in the bladder. Specimens removed: Uterus and cervix, Bilateral tubes and ovaries Reason for surgery: This is a 38-year-old who presented to my office with history of continuous periods despite removal of polyp and placement of IUD. the planned procedure is for a robotic hysterectomy the risks benefits and alternatives were discussed with the patient the patient had a clear understanding of the procedure and a consent form was signed. Surgeon: Yolie Sims genetics nurse: José Miguel Henry Type of Anesthesia: General Specimen's removed: uterus, cervix, fallopian tubes Drains: none Estimated Blood Loss (mL): 30cc Description of Procedure: Procedure: The patient was placed in the dorsal low lithotomy position and prepped and draped in the normal sterile fashion both abdominally and in the perineum. Her legs were placed in stirrups a Geller catheter was inserted into the urethra without difficulty. A weighted speculum was placed in the vagina and a single- tooth tenaculum was used to grasp the anterior lip of the cervix. An advincula uterine manipulator was inserted through the cervix without complication. It was then tied into place at the 2 and 10:00 locations on the cervix. Gloves were changed and attention was turned towards the abdomen. Approximately 23 cm above the pubic symphysis in the midline, and after Marcaine injection, a 8 mm incision was made. An 8 mm trocar was inserted through the laparoscope, then inserted into the abdomen under direct visualization using the laparoscope. Good abdominal placement was noted and no complications were appreciated. An air seal device was utilized to create pneumoperitoneum. At 12 cm lateral to the midline on the left and right sides 8 mm accessory ports were placed. Next a left upper quadrant 8 mm assistant corporate secretary port site was placed. The patient was placed in steep Trendelenburg position. The robot was docked. The hysterectomy was initiated first by taking down the round ligament on each side using the vessel sealer device. The fallopian tubes were grasped and the underlying mesosalpinx was cauterized an cut. The round and the broad ligament was then and taken down using the vessel sealer device. Next the bladder flap was taken down without complication. This was done using monopolar cautery to the level of the cervical vaginal junction. After the bladder flap was created, uterine vessels were then isolated and cauterized using the vessel sealer device and EndoShears. At this point the uterine vessels were taken down further starting from the ascending branch, dissecting along the edges of the cervix to the level of the cervical vaginal junction with hemostasis appreciated. Endometriosis lesions were cauterized during this portion of the procedure. Chocolate material expelled from these lesions. The cervical vaginal junction was then using monopolar cautery in a circumferential pattern across the superior aspect of the cervix. The specimen was delivered through the vagina and sent to pathology. The remaining vaginal cuff was then closed using a V lock suture. This was performed in a running technique. Excellent hemostasis was obtained and good closure was noted. Irrigation was then performed. All operative sites were noted to be hemostatic. A cystoscopy was performed with a 70 degree cystoscope through the urethra into the bladder without complication. The bladder was instilled with approximately 250 cc of normal saline. Intraoperative images were made. Ureteral orifices and jets were identified. No suture material was appreciated in the bladder. The bladder was then drained and cystoscope was removed. The abdominal cavity was again examined using the laparoscope after the robot was undocked. All operative sites were noted to be hemostatic. The trochars were removed under direct visualization without complication and pneumoperitoneum was reduced. At this point the skin was then closed using 4-0 Monocryl subcuticular stitch and sealed with surgical glue. The patient tolerated the procedure well sponge lap and needle counts were correct x2 the patient was taken to the recovery room in stable condition. Complications none Admit VTE Documentation VTE Present on Admission: Yes VTE Pharm Prophylaxis ordered?: No Multi Select Codes Urinary/Genital Urinary/Genital CPT Codes: 90793 Cystoscopy and 32447 TLH+BS/O <250gr uterus
== END 2023-12-01 14:45 | disposition home or self-care (01) ==
LOC: SDC 07:55 → AC 07:56
PROVIDERS: Anesthesiology; PCP Internal Medicine; Referring Provider Obstetrics & Gynecology; Visit Provider Obstetrics & Gynecology
PROC: 0UT90ZZ Resection of Uterus, Open Approach (ICD-10-PCS; CPT 58571; principal; 2023-12-01 09:55)
DX: D25.9 Leiomyoma of uterus, unspecified (principal); N92.0 Excessive and frequent menstruation with regular cycle; I10 Essential (primary) hypertension; K21.9 Gastro-esophageal reflux disease without esophagitis; J45.909 Unspecified asthma, uncomplicated; E78.5 Hyperlipidemia, unspecified; N88.8 Other specified noninflammatory disorders of cervix uteri; N72 Inflammatory disease of cervix uteri; Z79.899 Other long term (current) drug therapy; F41.9 Anxiety disorder, unspecified; N80.3C3 Endometriosis of bilateral uterosacral ligament(s), unspecified depth
CPT/HCPCS: 58571; 58563; S2900; 00840; 36415; 80053; 80061; 81025; 82962; 83735; 85025; 85027; 86850; 86900; 86901; 88307; J7120; J2405; J3475; J3490

== ENCOUNTER → 2024-03-31 | Outpatient (CLI) | payer OTHER, SELFPAY ==
[2024-03-31 10:34] LABS: Mucous, Urine 0 SEEN /hpf (<or=2+); Red Blood Cells-Urine 0 SEEN /hpf (0-5)
[2024-03-31 10:46] LABS: Glucose, Dipstick Normal (Normal); Ketone-Dipstick 5 mg/dl (Negative); Leukocyte Esterase-Dipstick 25 /ul (Negative); Nitrite-Dipstick Positive (Negative); Occult Blood-Urine Negative /ul (Negative); Protein-Dipstick 30 mg/dl (Negative); Specific Gravity, Urine 1.015 (1.002-1.030); Urine Clarity Clear (Clear); Urine Urobilinogen 12 mg/dl (Normal)
[2024-03-31 10:47] LABS: Color, Urine SEE COMMENT BELOW (Yellow); Urine Bilirubin Dipstick 6 mg/dL (Negative)
[2024-03-31 10:51] LABS: Squamous Epithelial Cells - UA 5-10 SEEN /hpf (5-10); White Blood Cells 5-10 SEEN /hpf (0-5)
[2024-03-31 10:52] LABS: Bacteria RARE /hpf (None Seen)
== END | disposition home or self-care (01) ==
LOC: LAB 10:30
PROVIDERS: PCP Internal Medicine; Referring Provider Internal Medicine; Visit Provider Internal Medicine
DX: R30.0 Dysuria (principal)
CPT/HCPCS: 81001; 87086; 87088

== ENCOUNTER → 2024-07-11 | Outpatient (CLI) | payer OTHER, SELFPAY ==
--- NOTE | 2024-07-11 15:42 | BI_ITS ---
MAMMOGRAPHY - BILATERAL SCREENING REASON FOR EXAM: Female, 39 years old. Routine annual screening examination. PERTINENT HISTORY: Aunt with breast cancer. TECHNIQUE: Digital bilateral breast alysha (3D mammographic acquisition) in the CC and MLO projections. 2-D mediolateral oblique (MLO) and craniocaudad (CC) views of both breasts were obtained. CAD: Full Field Digital Mammography with Computer Added Detection was performed. COMPARISON: None. Baseline examination. FINDINGS: Breast Composition: The breasts are heterogeneously dense, which may obscure small masses. There is a 4.2 mm x 7 mm nodular density in the deep central slightly medial aspect of the left breast. Correlation with ultrasound recommended. Small bilateral benign-appearing axillary lymph nodes. No other significant abnormalities are identified. BI/SCRN MAMM (CAD)W/ALYSHA BILAT IMPRESSION: 4.2 mm x 7 mm nodular density in the deep central slightly medial aspect of the left breast as described. Correlation with ultrasound recommended. ASSESSMENT CATEGORY: BIRADS Category 0: Incomplete. Need additional imaging evaluation. A letter regarding these results will be sent to the patient by the facility within 30 days. Approximately 10% of breast cancers are not detected by mammography. A normal mammogram should not delay biopsy of a clinically suspicious abnormality. [id number] Electronically Signed: Bert Samano MD at 9:35 EST ,
== END | disposition home or self-care (01) ==
LOC: OPBI 15:41
PROVIDERS: PCP Internal Medicine; Referring Provider Internal Medicine; Visit Provider Internal Medicine
DX: Z12.31 Encounter for screening mammogram for malignant neoplasm of breast (principal)
CPT/HCPCS: 77063; 77067

== ENCOUNTER → 2024-07-13 | Outpatient (CLI) | payer OTHER, SELFPAY ==
--- NOTE | 2024-07-13 14:48 | US_ITS ---
STUDY: ULTRASOUND BREAST - LEFT REASON FOR EXAM: Female, 39 years old. Abnormal screening mammogram TECHNIQUE: Axial and longitudinal images of the LEFT breast were performed with a high resolution ultrasound transducer. # OF IMAGES: 67 COMPARISON: Comparison is made with prior mammogram dated July 11, 2024. FINDINGS: LEFT Breast: The inner half of the left breast was examined with ultrasound. There is evidence of dilated duct with internal echoes within the dilated ducts. This measures 1 cm x 1 cm x 0.5 cm. A papilloma should be ruled out. US/Breast Limited Unilateral IMPRESSION: Findings suggestive of a 1 cm x 1 cm x 0.5 cm polyp within a dilated duct. ASSESSMENT CATEGORY: BIRADS Category 2: Benign. A letter regarding these results will be sent to the patient by the facility within 30 days. Electronically Signed: Bert Samano MD at 9:56 EST ,
== END | disposition home or self-care (01) ==
PROVIDERS: PCP Internal Medicine; Referring Provider Internal Medicine; Visit Provider Internal Medicine
DX: R92.8 Other abnormal and inconclusive findings on diagnostic imaging of breast (principal)
CPT/HCPCS: 76642

== ENCOUNTER → 2024-11-30 | Outpatient (CLI) | payer OTHER, SELFPAY ==
[2024-11-30 12:50] LABS: Absolute Lymphocyte Count 1.89 X10^3/uL (0.83-4.51); Absolute Neutrophil Count 6.5 X10^3/uL (2.0-7.7); Basophil# 0.08 X10^3/uL; Basophil% 0.8 % (0-1); Eosinophils% 5.2 % (0-5); Hematocrit 41.6 % (37-47); Lymphocyte # 1.89 X10^3/ul (0.83-4.51); Lymphocyte % 19.6 % (19-41); Mean Corp Hgb Conc 33.7 g/dL (32-36); Mean Corpuscular Hgb 30.5 pg (27.0-32.0); Mean Corpuscular Volume 90.6 fL (81-99); Mean Platelet Vol. 9.5 fl (6.2-12.0); Monocyte# 0.68 X10^3/uL; NRBC Flagged by Analyzer 0 % (0-5); Neutrophil # 6.48 X10^3/uL (2.7-7.7); Neutrophil % 67.1 % (47-70); Platelet Count 458 K/mm3 (150-450); RBC Distribution Width SD 42.8 fl (35.1-43.9); Red Blood Count 4.59 M/mm3 (4.2-5.4); White Blood Count 9.7 K/mm3 (4.4-11.0)
[2024-11-30 13:27] LABS: ALB/GLOB Ratio 1.4 RATIO (0.9-2.4); AST(SGOT) 18 U/L (<=31); Alanine Aminotransfer ALT/SGPT 19 U/L (<=34); Alkaline Phosphatase 70 U/L (35-104); Anion Gap 10 (5-15); BUN 14 mg/dL (4-19); BUN/Creat Ratio 18.1 RATIO (10-20); Calcium,Total 9.1 mg/dL (7.6-11.0); Carbon Dioxide 21.3 mmol/L (21.0-32.0); Chloride 105 mmol/L (98-108); Cholesterol 202 mg/dL (<=200); Creatinine, Serum 0.75 mg/dL (0.70-1.20); EST Glomerular Filtration Rate 103 (>60); Globulin 2.9 g/dL (2.2-4.2); Glucose 109 mg/dL (70-99); High Density Lipoprotein 35 mg/dL; Low Density Lipoprotein Calc. 137 mg/dL; Potassium 3.8 mmol/L (3.3-5.1); Sodium Level 136 mmol/L (133-145); Total Bilirubin 0.37 mg/dL (0.00-1.30); Triglycerides 150 mg/dL; Very Low Density Lipoprotein 30 mg/dL (5-40); cholesterol:hdl ratio screen 5.77
== END | disposition home or self-care (01) ==
LOC: BIMLAB 11:24
PROVIDERS: PCP Internal Medicine; Referring Provider Internal Medicine; Visit Provider Internal Medicine
DX: Z00.00 Encounter for general adult medical examination without abnormal findings (principal)
CPT/HCPCS: 36415; 80053; 80061; 85025

== ENCOUNTER 2025-01-31 12:28 | Day surgery (SDC) | payer OTHER, SELFPAY ==
--- NOTE | 2025-01-25 15:35 | PAT.ANE_ITS ---
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 When Was Last Pacemaker Check QUESTION #4 FULL TEXT: You/Your Family Experience fever (hyperthermia) with Anesthesia Last Oral Intake Last Oral intake: Last Oral Intake NPO since Meds taken in AM with sips of water? Meds patient instructed to take am of surgery PONV PONV - high school french teacher: PONV - high school french teacher Female Yes 01/25/25 15:17 HX of Motion Sickness Yes 01/25/25 15:17 HX of N/V After Surgery Yes 01/25/25 15:17 Non-Smoker Yes 01/25/25 15:17 Duration of Surgery greater No 01/25/25 15:17 than 60 minutes Number of Risk Factors 4 01/25/25 15:17 PONV Score Severe Risk 01/25/25 15:17 Height & Weight Height & Weight: Anesthesia: Height & Weight Height 5 ft 5 in 11/30/24 10:54 Respiratory Assessment 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 Has anyone observed you stop No 01/25/25 15:17 breathing during sleep? STOP Results Negative 01/25/25 15:17 QUESTION #5 FULL TEXT : Do you snore loudly (louder than talking or can be heard through closed doors)? 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: Tobacco Use History - high school french teacher Tobacco Use Smoking Status Never smoker 01/25/25 15:17 Hx Tobacco Use No 01/25/25 15:17 Years Smoking Packs Smoked per Day Smoking Cessation Date was within the last 15 years Hx Smoking Cessation Date Hx Smoking Cessation Counseling Hematologic Medial History Hematologic Hx - high school french teacher: Hematologic Medical Hx - cell lead Hx of Blood Transfusion No 01/25/25 15:17 Hx of Transfusion in last 3 No 01/25/25 15:17 Months Date of Last Transfusion (if within last 3 months) Ever experience any problems No 01/25/25 15:17 with transfusion(s)? Specify any problems Hx of Preganancy in last 3 No 01/25/25 15:17 Months Nurse Filling Out Transfusion [email or web address] 01/25/25 15:17 & Questions: Date: 01/25/25 01/25/25 15:17 Time: 15:18 01/25/25 15:17 Patient unable to answer at this time (ie. confused, unrespo /Reproduction History /Reproductive History - high school french teacher: /Reproductive Hx- high school french teacher Hx Now No 01/25/25 15:17 Gestational Age (in weeks): EDC: Hx Hx Para Hx Section SAB No 01/25/25 15:17 PFSH Medical History (Updated 01/25/25 @ 15:17 by Mallory Clements) Family history of colon cancer in father Colon cancer screening Health care maintenance UTI (urinary tract infection) Migraine headache History of hiatal hernia History of edema Generalized anxiety disorder Preventative health care Wears glasses Non-smoker Shortness of breath on exertion Chronic cough History of irregular heartbeat GERD (gastroesophageal reflux disease) Hoarseness Lymphadenopathy of head and neck region Localized swelling, mass and lump, neck Flu vaccine need Arthritis Hyperlipidemia Hypoglycemia History of hypertension Frequent headaches Asthma Seasonal allergies Home Medications ?Medication ?Instructions ?Recorded ?Last Taken ?Type levocetirizine 5 mg tablet (Xyzal) 5 mg PO DAILY 01/20 Unknown History fluticasone propionate 50 2 spray intranasal DAILY 05/13 Unknown History mcg/actuation nasal spray,suspension (Flonase Allergy Relief) lorazepam 0.5 mg tablet 0.5 mg PO BID PRN anxiety #1 4 tabs 03/04/23 Unknown Rx levalbuterol tartrate 45 2 inh inhalation Q6H PRN jeremiah rtness 04/20/23 Unknown Rx mcg/actuation aerosol inhaler of breath or wheezing #1 5 grams (Xopenex HFA) escitalopram oxalate 20 mg tablet 20 mg PO DAILY #90 t abs 08/09/24 Unknown Rx (Lexapro) labetalol 200 mg tablet 200 mg PO QHS #135 tabs 07/23 02/13 Unknown Rx amlodipine 5 mg tablet 5 mg PO DAILY 11/30/24 Unkno wn History labetalol 100 mg tablet 100 mg PO QAM 11/30/24 Unkno wn History budesonide 180 mcg/actuation 1 inh PO BID #1 ea Unknown Rx breath activated powder inhaler (Pulmicort Flexhaler) buspirone 10 mg tablet 10 mg PO BID #180 TABLETS Unknown Rx famotidine 20 mg tablet See Rx Instructions .Route 0 01/23/25 Unknown Rx .COMPLEX #180 tabs nortriptyline 25 mg capsule 25 mg PO QHS #90 caps 10/14 Unknown Rx Allergy/AdvReac Type Severity Reaction Status Date / Time tramadol Allergy Hives Verified 01/25/25 15:08 Environmental Allergies: AdvReac Itching Verified 01/25/25 15:08 Uncoded (dust mites) hydrochlorothiazide AdvReac Other Verified 01/25/25 15:08 mold AdvReac Itching Verified 01/25/25 15:08 nitrofurantoin (From AdvReac Upset Verified 01/25/25 15:08 Macrobid) Stomach nitrofurantoin AdvReac Upset Verified 01/25/25 15:08 macrocrystalline (From Stomach Macrobid) onion AdvReac Vomiting Verified 01/25/25 15:08 BACLOFEN Allergy Mild Rash Uncoded 11/30/24 10:49 Family History Father Asthma Arthritis Colon cancer Cancer Prostate Hypertension Mother Hypertension Hyperlipidemia Surgical History History of esophagogastroduodenoscopy (EGD) History of wisdom tooth extraction History of myomectomy Status post surgical removal of neoplasm of skin Social History number of children: 1 current occupational status: employed 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 Status: Never smoker alcohol intake: never substance use type: does not use caffeine: No what type of physical activity do you participate in: none seatbelt use: always do you feel safe at home: Yes additional social history: - Jason-Works at [employer] Audit: Pertinent Findings Pertinent Findings EKG Perinent findings: 10/05/2020. Normal sinus rhythm 93 bpm poor R wave progression. Recommendation Anesthesia Recommendation Anesthesia recommendation: OPTIMIZED for anesthesia
[2025-01-31] VITALS (8 sets, daily range): BP systolic 115–129; BP diastolic 70–91; PULSE 80–104; RESP 16; TEMP 36.2–36.9; O2SAT 95–99; BMI 42.5
[2025-01-31] MEDS: Lactated Ringers 1,000 ML 15 ML IV (12:50)
--- NOTE | 2025-01-31 13:01 | PRE.ANES_ITS ---
ASA Classification* ASA Classification ASA Classification: 3 Assessment & Plan Anesthesia* Anesthesia Assessment Anesthesia Assessment: Discussed sedation and/or anesthesia options, risks, benefits, and alternatives with patient/parents/legal guardian/POA. Questions invited. The patient/parents/legal guardian/POA seems to understand and agrees to proceed with anesthesia plan. Reviewed the physical assessment, medical history, allergy history and patient home medications list prior to surgery/procedure/anesthetic and documented any changes. Performed airway and anesthesia risk assessments. Anesthesia Type Anesthesia Type: MAC History Source History Obtained from:: Patient and Chart Anesthesia Focused Assessment* Temperature: 97.2 F Pulse Rate: 104 Blood Pressure: 129/91 Respiratory Rate: 16 Pulse Ox: 99 Oxygen Delivery Method: Room Air Airway Assessment Mouth opens: >3 cm Mallampati Score: III Teeth Condition: Intact Neck Range of motion (ROM): Full ROM Labs Anesthesia Preop lab: CBC WBC 9.7 K/mm3 (4.4-11.0) 11/30/24 11:11/30/24 RBC 4.59 M/mm3 (4.2-5.4) 11/30/24 11:11/30/24 Hgb 14.0 g/dL (12.0-15.0) 11/30/24 11:11/30/24 Hct 41.6 % (37-47) 11/30/24 11:11/30/24 Plt Count 458 K/mm3 (150-450) H 11/30/24 11:11/30/24 CHEMISTRY Potassium 3.8 mmol/L (3.3-5.1) 11/30/24:11/30/24 Sodium 136 mmol/L (133-145) 11/30/24 11:11/30/24 Magnesium 2.2 mg/dL (1.6-2.6) 11/23/23 15:38 11/23/23 BUN 14 mg/dL (4-19) 11/30/24:11/30/24 Creatinine 0.75 mg/dL (0.70-1.20) 11/30/24 11:11/30/24 Glucose 109 mg/dL (70-99) H 11/30/24 11:11/30/24 POC Glucose 95 mg/dL (74-106) 12/01/23 08:24 12/01/23 COAG Urine Test Negative Negative 12/01/23 08:15 12/01/23 Pre-Assessment Diagnosis/Proposed Procedure Planned Operative Procedure(s): Colonoscopy - Open Access Anesthesia History 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 When Was Last Pacemaker Check QUESTION #4 FULL TEXT: You/Your Family Experience fever (hyperthermia) with Anesthesia Last Oral Intake Last Oral intake: Last Oral Intake NPO since 08:30 01/31/25 12:44 Meds taken in AM with sips of Yes 01/31/25 12:44 water? 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 Female Yes 01/25/25 15:17 HX of Motion Sickness Yes 01/25/25 15:17 HX of N/V After Surgery Yes 01/25/25 15:17 Non-Smoker Yes 01/25/25 15:17 Duration of Surgery greater No 01/25/25 15:17 than 60 minutes Number of Risk Factors 4 01/25/25 15:17 PONV Score Severe Risk 01/25/25 15:17 Height & Weight Height & Weight: Anesthesia: Height & Weight Height 5 ft 5 in 01/31/25 12:44 Weight: 116 kg 01/31/25 12:44 Body Mass Index (BMI) 42.5 01/31/25 12:44 Respiratory Assessment 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 Has anyone observed you stop No 01/25/25 15:17 breathing during sleep? STOP Results Negative 01/25/25 15:17 QUESTION #5 FULL TEXT : Do you snore loudly (louder than talking or can be heard through closed doors)? 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: Tobacco Use History - high school french teacher Tobacco Use Smoking Status Never smoker 01/25/25 15:17 Hx Tobacco Use No 01/25/25 15:17 Years Smoking Packs Smoked per Day Smoking Cessation Date was within the last 15 years Hx Smoking Cessation Date Hx Smoking Cessation Counseling Hematologic Medial History Hematologic Hx - high school french teacher: Hematologic Medical Hx - tank car cleaner Hx of Blood Transfusion No 01/25/25 15:17 Hx of Transfusion in last 3 No 01/25/25 15:17 Months Date of Last Transfusion (if within last 3 months) Ever experience any problems No 01/25/25 15:17 with transfusion(s)? Specify any problems Hx of Preganancy in last 3 No 01/25/25 15:17 Months Nurse Filling Out Transfusion [email or web address] 01/25/25 15:17 & Questions: Date: 01/25/25 01/25/25 15:17 Time: 15:18 01/25/25 15:17 Patient unable to answer at this time (ie. confused, unrespo /Reproduction History /Reproductive History - high school french teacher: /Reproductive Hx- high school french teacher Hx Now No 01/25/25 15:17 Gestational Age (in weeks): EDC: Hx Hx Para Hx Section SAB No 01/25/25 15:17 Active Medications Active Medications: Current Medications Generic Name Dose Route Start Last Admin Trade Name Freq PRN Reason Stop Dose Admin Lactated Ringer's 1,000 mls @ 15 mls/hr 01/31/25 12:45 01/31/25 12:50 IV 15 mls/hr .Q48H MEGA Administration PFSH Medical History Family history of colon cancer in father Colon cancer screening Health care maintenance UTI (urinary tract infection) Migraine headache History of hiatal hernia History of edema Generalized anxiety disorder Preventative health care Wears glasses Non-smoker Shortness of breath on exertion Chronic cough History of irregular heartbeat GERD (gastroesophageal reflux disease) Hoarseness Lymphadenopathy of head and neck region Localized swelling, mass and lump, neck Flu vaccine need Arthritis Hyperlipidemia Hypoglycemia History of hypertension Frequent headaches Asthma Seasonal allergies Home Medications ?Medication ?Instructions ?Recorded ?Last Taken ?Type levocetirizine 5 mg tablet (Xyzal) 5 mg PO DAILY 01/20 Unknown History fluticasone propionate 50 2 spray intranasal DAILY 05/13 Unknown History mcg/actuation nasal spray,suspension (Flonase Allergy Relief) lorazepam 0.5 mg tablet 0.5 mg PO BID PRN anxiety #1 4 tabs 03/04/23 Unknown Rx levalbuterol tartrate 45 2 inh inhalation Q6H PRN jeremiah rtness 04/20/23 Unknown Rx mcg/actuation aerosol inhaler of breath or wheezing #1 5 grams (Xopenex HFA) amlodipine 5 mg tablet 5 mg PO DAILY 11/30/2401/31 History labetalol 100 mg tablet 100 mg PO QAM 11/30/2401/31 History budesonide 180 mcg/actuation 1 inh PO BID #1 ea 01/31/25 Rx breath activated powder inhaler (Pulmicort Flexhaler) buspirone 10 mg tablet 10 mg PO BID #180 TABLETS 01/31/25 Rx famotidine 20 mg tablet See Rx Instructions .Route 0 01/23/25 01/31/25 Rx .COMPLEX #180 tabs nortriptyline 25 mg capsule 25 mg PO QHS #90 caps 10/14 Unknown Rx escitalopram oxalate 20 mg tablet 20 mg PO DAILY #90 t abs 01/31/25 01/31/25 Rx (Lexapro) labetalol 200 mg tablet 200 mg PO QHS #135 tabs 01/20 08/16 Unknown Rx Allergy/AdvReac Type Severity Reaction Status Date / Time tramadol Allergy Hives Verified 01/31/25 12:43 baclofen AdvReac Nausea Verified 01/31/25 12:43 Environmental Allergies: AdvReac Itching Verified 01/31/25 12:43 Uncoded (dust mites) hydrochlorothiazide AdvReac Other Verified 01/31/25 12:43 mold AdvReac Itching Verified 01/31/25 12:43 nitrofurantoin (From AdvReac Upset Verified 01/31/25 12:43 Macrobid) Stomach nitrofurantoin AdvReac Upset Verified 01/31/25 12:43 macrocrystalline (From Stomach Macrobid) onion AdvReac Vomiting Verified 01/31/25 12:43 Family History Father Asthma Arthritis Colon cancer Cancer Prostate Hypertension Mother Hypertension Hyperlipidemia Surgical History History of esophagogastroduodenoscopy (EGD) History of wisdom tooth extraction History of myomectomy Status post surgical removal of neoplasm of skin Social History number of children: 1 current occupational status: employed 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 Physical Exam Resp clear to auscultation bilaterally
--- NOTE | 2025-01-31 13:03 | PCM.HP.STD ---
HPI - General General Date of Admission: 01/31/25 Date of Service: 01/31/25 Chief Complaint: Screening colon HPI Narrative SIA ZHENG, is a 39 F who presents for screening colonoscopy. She never had a colonoscopy in the past. She has a positive family history of colon cancer in her father. [facility] Medical History Family history of colon cancer in father Colon cancer screening Health care maintenance UTI (urinary tract infection) Migraine headache History of hiatal hernia History of edema Generalized anxiety disorder Preventative health care Wears glasses Non-smoker Shortness of breath on exertion Chronic cough History of irregular heartbeat GERD (gastroesophageal reflux disease) Hoarseness Lymphadenopathy of head and neck region Localized swelling, mass and lump, neck Flu vaccine need Arthritis Hyperlipidemia Hypoglycemia History of hypertension Frequent headaches Asthma Seasonal allergies Home Medications ?Medication ?Instructions ?Recorded ?Last Taken ?Type levocetirizine 5 mg tablet (Xyzal) 5 mg PO DAILY 01/20/19 Unknown History fluticasone propionate 50 2 spray intranasal DAILY 01/30/22 Unknown History mcg/actuation nasal spray,suspension (Flonase Allergy Relief) lorazepam 0.5 mg tablet 0.5 mg PO BID PRN anxiety #14 tabs 03/04/23 Unknown Rx levalbuterol tartrate 45 2 inh inhalation Q6H PRN shortness 04/20/23 Unknown Rx mcg/actuation aerosol inhaler of breath or wheezing #15 grams (Xopenex HFA) amlodipine 5 mg tablet 5 mg PO DAILY 11/30/24 01/31/25 History labetalol 100 mg tablet 100 mg PO QAM 11/30/24 01/31/25 History budesonide 180 mcg/actuation 1 inh PO BID #1 ea 01/17/25 01/31/25 Rx breath activated powder inhaler (Pulmicort Flexhaler) buspirone 10 mg tablet 10 mg PO BID #180 TABLETS 01/23/25 01/31/25 Rx famotidine 20 mg tablet See Rx Instructions .Route 01/23/25 01/31/25 Rx .COMPLEX #180 tabs nortriptyline 25 mg capsule 25 mg PO QHS #90 caps 01/23/25 Unknown Rx escitalopram oxalate 20 mg tablet 20 mg PO DAILY #90 tabs 01/31/25 01/31/25 Rx (Lexapro) labetalol 200 mg tablet 200 mg PO QHS #135 tabs 01/31/25 Unknown Rx Allergy/AdvReac Type Severity Reaction Status Date / Time tramadol Allergy Hives Verified 01/31/25 12:43 baclofen AdvReac Nausea Verified 01/31/25 12:43 Environmental Allergies: AdvReac Itching Verified 01/31/25 12:43 Uncoded (dust mites) hydrochlorothiazide AdvReac Other Verified 01/31/25 12:43 mold AdvReac Itching Verified 01/31/25 12:43 nitrofurantoin (From AdvReac Upset Verified 01/31/25 12:43 Macrobid) Stomach nitrofurantoin AdvReac Upset Verified 01/31/25 12:43 macrocrystalline (From Stomach Macrobid) onion AdvReac Vomiting Verified 01/31/25 12:43 Family History Father Asthma Arthritis Colon cancer Cancer Prostate Hypertension Mother Hypertension Hyperlipidemia Surgical History History of esophagogastroduodenoscopy (EGD) History of wisdom tooth extraction History of myomectomy Status post surgical removal of neoplasm of skin Social History number of children: 1 current occupational status: employed 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 Status: Never smoker alcohol intake: never substance use type: does not use caffeine: No what type of physical activity do you participate in: none seatbelt use: always do you feel safe at home: Yes additional social history: - Jason-Works at [employer] Constitutional Constitutional: Denies fatigue, fever(s), poor appetite, weight gain or weight loss Gastrointestinal Gastrointestinal: Denies belching, bloating, change in bowel habits, change in stool character, chewing difficulty, coffee ground emesis, constipation, cramping, diarrhea, dyspepsia, dysphagia, early satiety, excessive flatus, fecal incontinence, heartburn, hematemesis, hematochezia, hemorrhoids, loose stools, melena, nausea, odynophagia, rectal bleeding, tenesmus, vomiting or weight changes Vital Signs Vital Signs Vital Signs: 01/31/25 12:44 01/31/25 12:44 Temperature 97.2 F L Temperature Source Temporal Pulse Rate 104 H Respiratory Rate 16 Respiratory Pattern Normal Blood Pressure 129/91 H Blood Pressure Mean 103 Blood Pressure Source Monitor Blood Pressure Position Sitting Blood Pressure Location Left Arm Pulse Ox 99 Oxygen Delivery Method Room Air Weight Weight: 255 lb 11.779 oz Body Mass Index (BMI) 42.5 Physical Exam Const alert, oriented x3, no apparent distress and healthy appearing General Appearance: cooperative GI normal to inspection, nondistended, normoactive bowel sounds, soft to palpation, non-tender and non-distended Percussion: normal to percussion Rectal Exam: deferred Assessment & Plan Assessment/Plan (1) Family history of colon cancer in father: (2) Colon cancer screening: PLAN: 39-year-old comes in for colonoscopy. She was explained alternatives, risk and benefits including understanding bleeding, infection, sepsis, perforation, need for surgery . She will have an ASA of 3.
--- NOTE | 2025-01-31 13:55 | OP.COLON_ITS ---
Patient Name: Leila Mueller Procedure Date: 01/31/2025 1:29 PM Date of : 1985 Age: 39 Procedure: Colonoscopy Indications: Screening in patient at increased risk: Colorectal cancer in father before age 60 Providers: Mau Kohli DO Referring MD: Aline Chávez MD Medicines: Monitored Anesthesia Care Patient Profile: This is a 39 year old female. Refer to note in patient chart for documentation of history and physical. Last Colonoscopy: none. The patient's first colonoscopy is today. Complications: No immediate complications. Procedure: Pre-Anesthesia Assessment: - Prior to the procedure, a History and Physical was performed, and patient medications and allergies were reviewed. The patient is competent. The risks and benefits of the procedure and the sedation options and risks were discussed with the patient. All questions were answered and informed consent was obtained. Patient identification and proposed procedure were verified by the physician in the pre-procedure area. Mental Status Examination: alert and oriented. Airway Examination: normal oropharyngeal airway and neck mobility. Respiratory Examination: clear to auscultation. CV Examination: normal. Prophylactic Antibiotics: The patient does not require prophylactic antibiotics. Prior Anticoagulants: The patient has taken no anticoagulant or antiplatelet agents except for NSAID medication. ASA Grade Assessment: II - A patient with mild systemic disease. After reviewing the risks and benefits, the patient was deemed in satisfactory condition to undergo the procedure. The anesthesia plan was to use monitored anesthesia care (MAC). Immediately prior to administration of medications, the patient was re-assessed for adequacy to receive sedatives. The heart rate, respiratory rate, oxygen saturations, blood pressure, adequacy of pulmonary ventilation, and response to care were monitored throughout the procedure. The physical status of the patient was re-assessed after the procedure. After I obtained informed consent, the scope was passed under direct vision. Throughout the procedure, the patient's blood pressure, pulse, and oxygen saturations were monitored continuously. The Colonoscope was introduced through the anus and advanced to the cecum, identified by appendiceal orifice and ileocecal valve. The colonoscopy was performed without difficulty. The patient tolerated the procedure well. Scope In: 1:38:20 PM Scope Withdrawal Time 0 hours 6 minutes 15 seconds Scope Out: 1:47:10 PM Total Procedure Duration Time 0 hours 8 minutes 50 seconds Findings: The perianal and digital rectal examinations were normal. A few small-mouthed diverticula were found in the recto-sigmoid colon and sigmoid colon. The exam was otherwise without abnormality on direct and retroflexion views. Impression: - Diverticulosis in the recto-sigmoid colon and in the sigmoid colon. - The examination was otherwise normal on direct and retroflexion views. - No specimens collected. Recommendation: - Discharge patient to home. - Resume previous diet. - Continue present medications. - Repeat colonoscopy in 5 years for surveillance. Procedure Code(s): --- Professional --- G0105, Colorectal cancer screening; colonoscopy on individual at high risk CPT copyright 2021 [employer]. All rights reserved. The codes documented in this report are preliminary and upon remote medical coder review may be revised to meet current compliance requirements. Mau Kohli DO 01/31/2025 1:54:52 PM This report has been signed electronically. Number of Addenda: 0 Note Initiated On: 01/31/2025 1:29 PM
--- NOTE | 2025-01-31 13:55 | OP.PROVAT_ITS ---
01/31/2025 Aline Chávez MD [address] [place] [address] [place] [address] Re : Colonoscopy procedure for Leila Meuller Dear Dr. Chávez This procedure was performed on Friday, January 31, 2025. My impressions and recommendations are as follows: Impressions : - Diverticulosis in the recto-sigmoid colon and in the sigmoid colon. - The examination was otherwise normal on direct and retroflexion views. - No specimens collected. Recommendations : - Discharge patient to home. - Resume previous diet. - Continue present medications. - Repeat colonoscopy in 5 years for surveillance. My findings are described in the full procedure note, which is enclosed. If I can be of further assistance, please feel free to contact me at . Sincerely, Mau Friend, 01/31/2025 1:54:52 PM This report has been signed electronically.
--- NOTE | 2025-01-31 13:55 | PCM.POST.ANE ---
Anesthesia: Postop Eval I Current Vital Signs Temperature: 97.2 F Pulse Rate: 89 Blood Pressure: 115/70 Respiratory Rate: 16 Pulse Ox: 96 Oxygen Delivery Method: Room Air Assessment Airway patent: Yes Spontaneous unlabored respirations: Yes Mental status: Awake and Calm nausea: No Vomiting: No Anesthesia Complication: No Fluid Hydration Crystalloid volume administer (ml): 500 Total IV fluid infused: 500 Progress Note Anesthesia document: Postop Eval 1 completed: Yes
== END 2025-01-31 14:30 | disposition home or self-care (01) ==
LOC: EN 12:28 → AC 12:29
PROVIDERS: PCP Internal Medicine; Referring Provider Internal Medicine; Visit Provider Internal Medicine Gastroenterology
PROC: 0DJD8ZZ Inspection of Lower Intestinal Tract, Via Natural or Artificial Opening Endoscopic (ICD-10-PCS; CPT 45378; principal; 2025-01-31 13:25)
DX: Z12.11 Encounter for screening for malignant neoplasm of colon (principal); Z80.0 Family history of malignant neoplasm of digestive organs; K57.30 Diverticulosis of large intestine without perforation or abscess without bleeding; I10 Essential (primary) hypertension; F41.1 Generalized anxiety disorder; K21.9 Gastro-esophageal reflux disease without esophagitis; J45.909 Unspecified asthma, uncomplicated; Z79.51 Long term (current) use of inhaled steroids; Z79.899 Other long term (current) drug therapy
CPT/HCPCS: 45378; J2405